=== PATIENT | female | born 1985 | race African-American/Black ===

== ENCOUNTER 2019-05-06 17:07 | Emergency (ER) | payer BC, SELFPAY ==
--- NOTE | 2019-05-06 17:13 | ED.GENADULT ---
HPI - General Adult General Chief complaint: Upper Respiratory Infection Stated complaint: Cough Time Seen by Provider: 05/06/19 17:36 Source: patient Mode of arrival: ambulatory Limitations: no limitations History of Present Illness HPI narrative: 33-year-old female patient presents to the [facility] with complaints of cold symptoms for the past week. Patient states that she has had a little bit of a stuffy nose runny nose recently just yesterday started having a cough with green sputum production. Denies any chest pain or shortness of breath. Patient denies any fevers. Denies any weakness. Patient states that she did get a flu shot this year. Patient states HER-2 younger children did have influenza B last week. Denies any ear pain or sore throat. Related Data Home Medications Medication Instructions Recorded Confirmed clotrimazole-betamethasone applic TOPICAL 05/06/19 Allergies Allergy/AdvReac Type Severity Reaction Status Date / Time No Known Allergies Allergy Unknown Unverified 06/27/17 12:43 Review of Systems Review of Systems: Narrative: CONSTITUTIONAL: Denies fever, chills, or sweats. EYES: Denies visual changes, redness, or discharge. ENT: Positive rhinorrhea, congestion, denies sore throat, or otalgia. CARDIOVASCULAR: Denies chest pain, palpitations, or edema. RESPIRATORY: Positive productive cough, denies dyspnea. GASTROINTESTINAL: Denies abdominal pain, nausea, vomiting, or diarrhea. GENITOURINARY: Denies dysuria or hematuria. SKIN: Denies rash or itching. MUSCULOSKELETAL: Denies back pain, joint pain, or myalgia. NEUROLOGIC: Denies headache, numbness, or weakness. PSYCHIATRIC: Denies anxiety or depression. PMFSH Comments At the time of my signature I agree with nursing past medical history, surgical, social, and family history. There is no relevant family history pertinent to the presenting complaint. Exam Narrative: Exam Narrative: GENERAL: Well-appearing, well-nourished, and in no acute distress. HEAD: Normocephalic, atraumatic. No tenderness noted to frontal maxillary sinuses on palpation. EYES: PERRLA and EOMI. ENT: Nares with erythema and edema noted bilaterally with the left nare swollen shut, no rhinorrhea or epistaxis. Mucous membranes moist. Posterior pharynx with no erythema, tonsillar margin, exudates or lesions present. Bilateral TMs do have a little bit of fluid behind them. NECK: Supple. No lymphadenopathy CHEST: Clear to auscultation. No respiratory distress. HEART: Regular rate and rhythm. No murmur heard. Normal peripheral pulses. ABDOMEN: Soft, nontender, nondistended, normal active bowel sounds. EXTREMITIES: Normal range of motion. No edema. SKIN: Warm, dry, no rash. NEURO: No focal deficits. Alert and oriented x3. Course Vital Signs Vital signs: Vital Signs Temperature 37.1 C 05/06/19 17:20 Pulse Rate 84 05/06/19 17:20 Respiratory Rate 16 05/06/19 17:20 Blood Pressure 119/68 05/06/19 17:20 Pulse Oximetry 99 05/06/19 17:20 Temperature 37.1 C 05/06/19 17:20 Pulse Rate 84 05/06/19 17:20 Respiratory Rate 16 05/06/19 17:20 Blood Pressure 119/68 05/06/19 17:20 Pulse Oximetry 99 05/06/19 17:20 Vital signs reviewed. Medical Decision Making Differential Diagnosis Differential Diagnosis: Differential diagnosis: Allergic rhinitis, chronic sinusitis, tonsillitis, acute sinusitis, infectious mononucleosis, seasonal influenza, pertussis, diphtheria, meningococcal disease, viral syndrome, viral bronchitis, RSV. Discussed with patient that the risk of her having pneumonia is extremely low at this time due the fact that she is not having any fevers not having any shortness of breath or chest pain. Discussed with her that the fact that her cough just started yesterday with some green sputum this is most likely due to the drainage due to the swelling noted to the nasal canal and the fluid noted behind bilateral TMs. Discussed with patient we will go
[2019-05-06 17:20] VITALS: BP 119/68; PULSE 84; RESP 16; TEMP 37.1; O2SAT 99
== END 2019-05-06 17:44 | disposition home or self-care (01) ==
PROVIDERS: Emergency Provider Nurse Practitioner Family; PCP Family Medicine
DX: J06.9 Acute upper respiratory infection, unspecified (principal); Z98.84 Bariatric surgery status
CPT/HCPCS: 99213; G0463

== ENCOUNTER 2022-06-10 19:18 | Emergency (ER) | payer OTHER, SELFPAY ==
--- NOTE | ~2022-06-10 | XR_ITS ---
Clinical Indication: Shortness of breath, chest pain PA and lateral views of the chest: Comparison: None Findings: The lungs are clear, without evidence of focal consolidation or pleural effusion. Cardiome diastinal silhouette is within normal limits. Bones and soft tissues are unremarkable. Impression: Normal chest. Reviewed, dictated and finalized at location . Impression: Normal chest.
[2022-06-10 19:20] VITALS: BP 132/61; PULSE 81; RESP 16; TEMP 36.6; O2SAT 100
--- NOTE | 2022-06-10 21:14 | ECG_ITS ---
Measurements Intervals Pender Rate: 64 P: 49 [place]: 178 QRS: 12 QRSD: 109 T: 16 QT: 376 QTc: 390 Interpretive Statements SINUS RHYTHM DELAYED PRECORDIAL R/S TRANSITION BORDERLINE ECG NO PREVIOUS ECG AVAILABLE FOR COMPARISON Electronically Signed On 06-11-2022 6:34:15 CDT by Saeid Vail D.O.
--- NOTE | 2022-06-10 21:37 | ED.SOB ---
HPI - SOB/Dyspnea General Chief Complaint: Shortness of Breath/Dyspnea Stated Complaint: sob Time Seen by Provider: 06/10/22 21:10 History of Present Illness HPI Narrative: Patient is a 37-year-old healthy female here due to concerns over palpitations, elevated heart rate and shortness of breath yesterday. 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 Her Apple Watch alerted her that her heart rate was 130 at that time. Patient went home and rested and started to feel somewhat better but today she woke up with an aching sensation in her left chest, left neck and left arm. Her heart rate has been normal today. States that she has had episodes of anxiety for similar presentation in the past. No leg swelling, fevers or chills, cough or congestion. Related Data Home Medications Medication Instructions Recorded Confirmed clotrimazole-betamethasone 1 applic topical 05/06/19 %-0.05 % topical cream Allergies Allergy/AdvReac Type Severity Reaction Status Date / Time No Known Allergies Allergy Unknown Verified 06/10/22 19:18 Review of Systems Review of Systems: Gen.: Denies fevers or chills Eyes: Denies eye pain or visual change ENT: Denies congestion Respiratory: Reports shortness of breath CV: Reports chest pain and palpitations GI: Reports abdominal pain nausea, emesis or diarrhea denies burning, urgency, frequency or hematuria Musculoskeletal: Denies back pain or muscle pain Neuro: Denies numbness, tingling, weakness or focal weakness Skin: Denies rash 10 point review of systems negative, other than as per history of present illness, past medical history and other positives and review of systems Exam Narrative: APPEARANCE: Well appearing, no pain in distress, well-nourished. Head: Normocephalic and atraumatic. EYES: PERRLA/EOMI, conjunctivae clear NOSE: No nasal drainage EARS: External ear normal in appearance THROAT: Oropharynx is clear. Mucous membranes are moist. NECK: Supple. No adenopathy, no masses. RESPIRATORY: Airway patent, respirations nonlabored. Clear to auscultation bilaterally, no rales, rhonchi, wheezing. CARDIOVASCULAR: Regular rate and rhythm without murmurs, rubs, or gallops. ABDOMINAL: Normoactive bowel sounds. Soft, nontender, nondistended. No rebound tenderness or guarding. MUSCULOSKELETAL: Extremities are warm and well-perfused. Moves all extremities well. No edema. NEURO: Normal speech. No focal neurologic deficits. SKIN: Skin is warm and dry. No rashes. PSYCHIATRIC: Normal affect/mood.. Course Vital Signs Vital signs: Vital Signs Temperature 97.8 F 06/10/22 19:20 Pulse Rate 81 06/10/22 19:20 Respiratory Rate 16 06/10/22 19:20 Blood Pressure 132/61 06/10/22 19:20 Pulse Oximetry 100 06/10/22 19:20 Oxygen Delivery Room Air 06/10/22 19:20 Temperature 97.8 F 06/10/22 19:20 Pulse Rate 67 06/10/22 23:07 Respiratory Rate 14 06/10/22 23:07 Blood Pressure 132/61 06/10/22 19:20 Pulse Oximetry 97 06/10/22 23:07 Oxygen Delivery Room Air 06/10/22 19:20 MDM - SOB/Dyspnea MDM Narrative Medical decision making narrative: 37-year-old female here for evaluation of an episode of shortness of breath and tachycardia yesterday which resolved but is now having some lingering left-sided chest pain. Patient is nontoxic in appearance and has normal vital signs. She was maintained on telemetry without any events. Basic labs unremarkable. D-dimer is negative. EKG and troponin are nonischemic. TSH is normal. Unclear etiology of patient's symptoms, will be discharged home to follow-up with cardiology she may benefit from a Holter monitor if her symptoms continue. Chest pain resolved with Tylenol. Heart score is 1. No indication for inpatient admission at this time. Return precautions were discussed and she voiced understanding. Lab D
[2022-06-10] MEDS: ACETAMINOPHEN 325 MG TABLET 650 MG PO (22:09)
[2022-06-10 22:22] LABS: Basophils Percent Auto 0.4 % (0.2-1.2); Eosinophils Absolute Auto 0.1 K/mm3 (0-0.3); Eosinophils Percent Auto 1.7 % (0-4.4); Hematocrit 40.8 % (37.0-47.0); Hemoglobin 13.2 g/dL (12.0-15.0); Lymphocytes Absolute Auto 2.04 K/mm3 (0.9-3.2); Lymphocytes Percent Auto 43.2 % (18.3-44.2); Mean Corpuscular HGB Conc 32.4 g/dl (32-36); Mean Corpuscular Hemoglobin 30.2 pg (26-34); Mean Corpuscular Volume 93.4 fl (80-100); Mean Platelet Volume 11.1 fl (7.4-10.4); Monocytes Absolute Auto 0.4 K/mm3 (0.1-0.6); Monocytes Percent Auto 8.3 % (2.6-8.5); Neutrophils Absolute Auto 2.2 K/mm3 (1.3-6.7); Neutrophils Percent Auto 46.4 % (45.5-73.1); Platelet Count Result 188 k/mm3 (150-375); Red Blood Count 4.37 M/mm3 (4.2-5.4); Red Cell Distribution Width 12.4 % (11.5-14.5); White Blood Count 4.7 K/mm3 (4.5-10.0)
--- NOTE | 2022-06-10 22:22 | PC.NURSE ---
Lab called to obtain blood on patient.
[2022-06-10 22:36] LABS: Alanine Aminotransferase 16 U/L (6-35); Albumin Level 4.3 g/dL (3.5-5.1); Alkaline Phosphatase 66 U/L (38-126); Anion Gap 3 mmol/L (8-16); Aspartate Amino Transferase 23 U/L (14-36); Bilirubin,Total 0.6 mg/dL (0.2-1.3); Blood Urea Nitrogen 12 mg/dL (7-17); Calcium 8.8 mg/dL (8.4-10.2); Carbon Dioxide 29 mmol/L (22-30); Chloride 104 mmol/L (98-107); Estimated CRCL calculation 108 ml/min; Estimated Glomerular Filt Rate > 60; Glucose 84 mg/dL (65-110); Potassium 4.2 mmol/L (3.4-5.0); Sodium 136 mmol/L (137-145)
[2022-06-10 22:47] LABS: Troponin I < 0.012 ng/mL (0.000-0.034)
[2022-06-10 22:59] LABS: Partial Thromboplastin Time 26.2 SECONDS (22.3-36.8)
[2022-06-10 23:07] VITALS: PULSE 67; RESP 14; O2SAT 97
--- NOTE | 2022-06-10 23:07 | PC.NURSE ---
Report received from DIOGENES Whitten. Assumed care of patient at this time.
[2022-06-10 23:10] LABS: Lipase 307 U/L (23-300); Magnesium 1.9 mg/dL (1.6-2.3)
[2022-06-10 23:42] LABS: D Dimer 0.47 ug/mL (<0.48)
[2022-06-11 00:39] LABS: Thyroid Stimulating Hormone Reflex 0.941 uIU/mL (0.465-4.68)
== END 2022-06-11 01:02 | disposition home or self-care (01) ==
PROVIDERS: Emergency Provider Physician Assistant; PCP Family Medicine
DX: R06.9 Unspecified abnormalities of breathing (principal); R07.9 Chest pain, unspecified
CPT/HCPCS: 36415; 71046; 80053; 83690; 83735; 84443; 84484; 85025; 85380; 85610; 85730; 93005; 99283; A9270

== ENCOUNTER 2022-07-15 13:08 | Emergency (ER) | payer OTHER, SELFPAY ==
--- NOTE | ~2022-07-15 | XR_ITS ---
EXAMINATION: XR hand RT min 3V INDICATION: Right hand pain TECHNIQUE: Three views of the right hand are obtained. COMPARISON: None available FINDINGS: No fracture, dislocation, or subluxation. The bones, soft tissues, and joint spaces are nor mal. IMPRESSION: 1. No acute osseous abnormality. Reviewed, dictated and finalized at location A.
--- NOTE | ~2022-07-15 | XR_ITS ---
EXAMINATION: XR forearm RT 2V INDICATION: Right forearm pain and swelling TECHNIQUE: Two views of the right forearm are obtained. COMPARISON: None available FINDINGS: There is a nondisplaced fracture of the radial head. An elbow joint effusion is present. Al ignment at the wrist and elbow is normal. IMPRESSION: 1. Nondisplaced radial head fracture with elbow joint effusion. Reviewed, dictated and finalized at location A.
--- NOTE | 2022-07-15 13:19 | ED.GENADULT ---
HPI - General Adult General Chief complaint: Extremity Injury, Upper Stated complaint: rt arm injury Time Seen by Provider: 07/15/22 13:19 Source: patient Mode of arrival: ambulatory Limitations: no limitations History of Present Illness HPI narrative: 37-year-old female patient presents to [facility] with complaints of right arm pain. Patient states she slipped on a piece paper yesterday and fell landing on her right elbow. Patient states that she tried taking some Aleve yesterday for the pain but felt like it did really help much. Denies taking anything today for pain. Denies any numbness or tingling to the hand. Patient states it does hurt when she tries to extend her elbow. Related Data Allergies Allergy/AdvReac Type Severity Reaction Status Date / Time No Known Allergies Allergy Unknown Verified 07/15/22 13:28 Review of Systems Review of Systems: CONSTITUTIONAL: Denies fever, chills, or sweats. EYES: Denies visual changes, redness, or discharge. ENT: Denies rhinorrhea, congestion, sore throat, or otalgia. CARDIOVASCULAR: Denies chest pain, palpitations, or edema. RESPIRATORY: Denies cough or dyspnea. GASTROINTESTINAL: Denies abdominal pain, nausea, vomiting, or diarrhea. GENITOURINARY: Denies dysuria or hematuria. SKIN: Denies rash or itching. MUSCULOSKELETAL: Denies back pain, joint pain, or myalgia. Positive right elbow and forearm pain status post fall NEUROLOGIC: Denies headache, numbness, or weakness. PSYCHIATRIC: Denies anxiety or depression. [facility] Family History Family History (Updated 07/15/22 @ 13:22 by YOON Salazar) Other Asthma Hypertension Sickle cell anemia Comments At the time of my signature I agree with nursing past medical history, surgical, social, and family history. There is no relevant family history pertinent to the presenting complaint. Exam Narrative: GENERAL: Well-appearing, well-nourished, and in no acute distress. HEAD: Normocephalic, atraumatic. EYES: PERRLA and EOMI. ENT: Nares clear, no rhinorrhea or epistaxis. Mucous membranes moist. NECK: Supple. No lymphadenopathy CHEST: Clear to auscultation. No respiratory distress. HEART: Regular rate and rhythm. No murmur heard. Normal peripheral pulses. ABDOMEN: Soft, nontender, nondistended, normal active bowel sounds. EXTREMITIES: The R elbow is without obvious asymmetry or deformity when compared to the L elbow. No obvious surface trauma, ecchymosis or soft tissue swelling. bony tenderness to palpation of the lateral and medial epicondyle, olecranon, or radial head. No epicondylar or axillary lymphadenopathy. pain with flexion, unable to fully extend right elbow , pain with supination andpronation. decreased muscle strength and web developer compared to the left. Intact motor and sensation of ulnar, median, and radial nerves. SKIN: Warm, dry, no rash. NEURO: No focal deficits. Alert and oriented x3. Course Course Level of Care: Express Care Visit Vital Signs Vital signs: Vital Signs Temperature 36.4 C 07/15/22 13:25 Pulse Rate 79 07/15/22 13:25 Respiratory Rate 18 07/15/22 13:25 Blood Pressure 124/61 07/15/22 13:25 Pulse Oximetry 100 07/15/22 13:25 Temperature 36.4 C 07/15/22 13:25 Pulse Rate 79 07/15/22 13:25 Respiratory Rate 18 07/15/22 13:25 Blood Pressure 124/61 07/15/22 13:25 Pulse Oximetry 100 07/15/22 13:25 Vital signs reviewed Procedures Orthopedic Splinting/Casting Injury #1: Splinting/Casting Date: 07/15/22 Splinting/Casting Time: 14:16 Side: right Upper Extremity Injury Location: elbow and forearm Upper Extremity Immobilizer: posterior splint Splint: customized in ED OCL: posterior Pre-Procedure Neuro Vascular Exam: normal Post-Procedure Neuro Vascular Exam: normal Other Orthopedic Equipment: other (sling) Medical Decision Making MDM Narrative Medical decision making narrative: plan care for p
[2022-07-15 13:25] VITALS: BP 124/61; PULSE 79; RESP 18; TEMP 36.4; O2SAT 100
== END 2022-07-15 14:22 | disposition home or self-care (01) ==
PROVIDERS: Emergency Provider Nurse Practitioner Family; PCP Family Medicine
DX: S52.124A Nondisplaced fracture of head of right radius, initial encounter for closed fracture (principal); W01.0XXA Fall on same level from slipping, tripping and stumbling without subsequent striking against object, initial encounter; Z98.84 Bariatric surgery status
CPT/HCPCS: 29105; 73090; 73130; 99214; A4565; G0463

== ENCOUNTER 2024-05-22 20:47 | Emergency (ER) | payer OTHER, SELFPAY ==
--- NOTE | ~2024-05-22 | XR_ITS ---
EXAMINATION: XR chest 1V DATE: 05/22/2024 23:58 INDICATION: Chest pain. TECHNIQUE: A single frontal view of the chest was obtained. COMPARISON: Chest 2 view 06/10/2022 FINDINGS: There is no pneumonia, pleural effusion, or pneumothorax. The heart size is normal. IMPRESSION: 1. No acute cardiopulmonary disease. Reviewed, dictated and finalized at location A. 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
--- OUTSIDE RECORDS SUMMARY | 2024-05-22 20:49 | XMS_ITS | Encounter Summary ---
Author Organization [facility] Address [address] [place] [address] Care Team Providers Care Hematology Specialist Name Role Phone Popeye Bravo MD Primary Care Provider [phone] Encounter Details Date Type Department Care Team (Late st Contact Info) Description 11/10/2018 Abstract [facility] [address] [address] Michael Palomares MD [address] [place] [address] Social History Tobacco Use Types Packs/Day Years Used Date Smoking Tobacco: Former Cigarettes Smokeless Tobacco: Never Alcohol Use Standard Drinks/Week Comments Yes 0 (1 standard drink = 0.6 oz pur e alcohol) social use Comments Unknown Sex and Gender Information Value Date Recorded Sex Assigned at Not on file Legal Sex Female 6:07 AM [employer] Gender Identity Not on file Sexual Orientation Not on file documented as of this encounter Plan of Treatment Not on file documented as of this encounter Visit Diagnoses Not on filedocumented in this encounter Care Teams Hematology Specialist Relationship Specialty Start Date End Date Popeye Bravo MD [address] [place] [id number] PCP - General Family Practice 11/07/18 documented as of this encounter
--- OUTSIDE RECORDS SUMMARY | 2024-05-22 20:49 | XMS_ITS | Data Portability ---
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 Plan of Treatment Reminders Order Date Submit Date Provider Last Modified By Organization Details Last Modified Time Details Appointments None recorded. Lab unlisted lab - STD screening ([facility]) 2023 024 miLibris Brown, [address] [place], [address], 4 12:04:14 bacterial vaginosis + vaginitis panel, vaginal 2023 024 miLibris Brown, [address] [place], [address], 4 14:08:42 bacterial vaginosis + vaginitis panel, vaginal 2022 023 miLibris Brown, [address] [place], [address], 3 15:57:33 unlisted lab - STD screening ([facility]) 2022 023 miLibris Brown, [address] [place], [address], 3 11:42:38 unlisted lab - STD screening ([facility]) 2022 023 miLibris Brown, [address] [place], [address], 3 08:52:08 STI panel 2022 023 YOLIS Salas Brown, [address] [place], [address], 3 15:56:50 unlisted lab - STD screening ([facility]) 2022 023 YOLIS Salas Brown, [address] [place], [address], 3 14:24:56 STI panel 2022 023 YOLIS Salas Brown, [address] [place], [address], 3 10:02:36 CBC w/ auto diff 2022 023 YOLIS Waters[place] Brown, [address] [place], [address], 3 16:40:16 CMP, serum or plasma 2022 023 YOLIS Watersland Brown, [address] [place], [address], 3 14:19:03 TSH, serum or plasma 2022 023 YOLIS [employer] Brown, [address] [place], [address], 3 15:10:52 vitamin D, 25-hydroxy, total, serum 2022 023 [employer] [facility], [address] [place], [address], 3 04:09:19 vitamin B12, serum 2022 023 [facility], [address] [place], [address], 3 04:09:18 HIV 1+2 Ab + HIV1 p24 Ag, quantitativ e immunoassay , serum 06/29/ 2022 06/29/2 022 [facility], [address] [place], [address], 10:12:53 hepatitis C virus Ab, serum 2021 [facility], [address] [place], [address], 10:12:52 HBsAg (hepatitis B surface Ag), serum 2021 [facility], [address] [place], [address], 10:12:50 RPR (rapid plasma reagin), serum 2021 [facility], [address] [place], [address], 13:04:19 RPR (rapid plasma reagin), serum 2021 [facility], [address] [place], [address], 10:12:54 STI panel 2021 [facility], [address] [place] [address], [address], 15:02:56 Referral None recorded. Procedures None recorded. Surgeries None recorded. Imaging None recorded. Medication Orders triamcinolo ne acetonide 0.1 % topical ointment 2022 023 [id number], [address], [id number], 10:22:15 Patient TargetsNo targets recorded. Patient Instructions Encounter Date Encounter Id Patient Instructions Last Modified By Organization Details Last Modified Time 09/27/2021 [id number] learning about dietary guidelines [email or web address] Not available 09/27/2021 12:46:14 eating healthy foods: care instructions [email or web address] Not available 09/27/2021 12:46:14 weight management education [email or web address] Not available 09/27/2021 12:46:13 learning about control kalpesh Not available 09/27/2021 12:46:13 03/14/2023 [id number] A healthy lifestyle: care instructions [email or web address] Not available 03/14/2023 10:22:00 substance use disorder: care instructions [email or web address] Not available 03/14/2023 10:22:00 tobacco cessation [email or web address] Not available 03/14/2023 10:22:00 Following the [employer] Food Guide: Care Instructions [email or web address] Not available 03/14/2023 10:22:00 exercise program: getting started [email or web address] Not available 03/14/2023 10:22:00 Reason for Referral None Reported. Results Created Date Observation Date Name Description Value Unit Range Abnormal Flag Note LastModifiedBy Organization Detail LastModifiedTime 05/11/1905/11/2022 VITAM IN B12 vitamin B12 617 pg/mL 200-11 00 normal Not Available [facility] [address] [place], [address], 05/11/2022 04:09:18 05/11/1905/11/2022 VITAM IN D,25- OH,TO MIGUEL,I A vitamin D,25-oh,tota l,ia 15 NG/mL 30-100 low Vitam in D Statu s 25-OH Vitam in D: Defic iency : <20 ng/mL Insuf ficie ncy: 20 - 29 ng/mL Optim al: > or = 30 ng/mL For 25-OH Vitam in D testi ng on patie nts on D2-duarte pplem entat ion and patie nts for whom quant itati on of D2 and D3 fract ions is requi red, the Quest Assur eD(TM ) 25-OH VIT D, (D2,D 3), LC/MS /MS is recom joseluis d: order code 20014 (socorro ents >2yrs ). See Note 1 NO COLLE CTION DATE RECEI CHARO. WE HAVE USED THE DATE THE SPECI MEN WAS RECEI CHARO BY THIS LABOR ATORY THE COLLE CTION DATE. IF THIS IS INCOR RECT, PLEAS E CONTA CT CLIEN T SERVI RAYMUNDO. PHONE BARBI R: [phone] Note 1 For addit ional infor miroslava bedolla e refer to http: //[facility] ewelina muñoz.Que stDia gnost ics.c om/fa q/FAQ 199 (This link is being provi ded for infor yahir ferraro/ educa cheng l purpo ses only. ) Not Available [facility] [address] [place], [address], 05/11/2022 04:09:19 09/28/19 22 09/28/2021 STI PANEL trichomonas vaginalis TRICH neg negati ve normal Not Available [address], [address], 09/28/2021 15:02:55 09/28/19 22 09/28/2021 STI PANEL chlamydia trachomatis CT neg negati ve normal This repor t is inten ded for us in clini alycia monit oring and manag ement of patie nts. It is not inten ded for use in medic al-le gal appli catio n. Not Available [address], [address], 09/28/2021 15:02:55 09/28/19 22 09/28/2021 STI PANEL neisseria gonorrhoeae GC neg negati ve normal This repor t is inten ded for us in clini alycia monit oring and manag ement of patie nts. It is not inten ded for use in medic al-le gal appli catio n. Not Available [facility] [address] [place], [address], 09/28/2021 15:02:55 09/28/19 22 10/05/2021 HEPAT ITIS B SURFA CE ANTIG EN W/REF L CONFI RM hepatitis B surface antigen NON-RE ACTIVE non-re active normal Not Available [facility] [address] [place], [address], 10/05/2021 10:12:50 09/28/19 22 10/05/2021 HEPAT ITIS C AB W/REF L TO HCV RNA, QN, PCR hepatitis C antibody NON-RE ACTIVE non-re active normal Not Available [facility] [address] [place], [address], 10/05/2021 10:12:52 09/28/19 22 10/05/2021 HEPAT ITIS C AB W/REF L TO HCV RNA, QN, PCR index 0.01 <1.00 normal HCV antib dago was non-r eacti ve. There is no labor atory evide nce of HCV infec tion. In most cases , no furth er actio n is requi red. Howev er, if recen t HCV expos ure is suspe cted, a test for HCV RNA (test code 83626 ) is sugge sted. For addit ional infor yahir muñoz pleas e refer to http: //[facility] ewelina muñoz.que stdia gnost ics.c om/fa q/FAQ 22v1 (This link is being provi ded for infor yahir nal/ educa cheng l purpo ses only. ) Not Available [facility] [address] [address] , [place], [address], 10/05/2021 10:12:52 09/28/19 22 10/05/2021 HIV 1/2 ANTIG EN/AN TIBOD Y,FOU RTH GENER ATION W/RFL HIV Ag/Ab, 4TH gen NON-RE ACTIVE non-re active normal HIV-1 antig en and HIV-1 /HIV- 2 antib odies were not detec stephani. There is no labor atory evide nce of HIV infec tion. PLEAS E NOTE: This infor kourtneynoah muñoz has been discl osed to you from recor ds whose confi denti ality may be prote cted by state law. If your state requi res such prote ction , then the state law prohi bits you from toño stafford any furth er discl osure of the infor kourtneynoah n witho ut the speci fic writt en conse nt of the perso n to whom it perta ins, or as other durant permi tted by law. A gener al autho rilaura ion for the relea se of medic al or other infor matio n is NOT suffi cient for this purpo se. For addit ional infor matio n pleas e refer to http: //[facility] cat n.que stdia gnost ics.c om/fa q/FAQ 106 (This link is being provi ded for infor matio nal/ educa cheng l purpo ses only. ) The perfo rmanc e of this assay has not been clini ernestina valid ated in patie nts less than 2 years old. Not Available [facility] [address] [place], [address], 10/05/2021 10:12:53 09/28/19 22 10/05/2021 RPR (DX) W/REF L TITER AND CONFI RMATO RY TESTI NG RPR (DX) w/refl titer and confirmatory testing REACTI VE non-re active abnormal Not Available [facility] [address] [place], [address], 10/05/2021 10:12:54 09/28/19 22 10/05/2021 RPR TITER RPR titer 1:1 high Not Available [facility] [address], [address], 10/05/2021 10:12:55 09/28/19 22 10/05/2021 FTA-A BS fta-abs NON-RE ACTIVE non-re active normal The FTA-A BS is a trepo nemal assay that is inten ded to be used with other tests (e.g. RPR) as part of a diagn ostic algor ithm in the diagn osis of syphi lis. Not Available [facility] [place] [address] [address] [place], [address], 10/05/2021 10:12:55 05/09/19 23 05/10/2022 COMPR EHENS HENRRY METAB OLIC PANEL sodium 141 mmol/ L 136 - 145 normal Not Available [address], [address], 05/10/2022 14:19:03 05/09/19 23 05/10/2022 COMPR EHENS HENRRY METAB OLIC PANEL potassium 4.6 mmol/ L 3.5 - 5.1 normal Not Available [address], [address], 05/10/2022 14:19:03 05/09/19 23 05/10/2022 COMPR EHENS HENRRY METAB OLIC PANEL chloride 104 mmol/ L 98 - 107 normal Not Available [address], [address], 05/10/2022 14:19:03 05/09/19 23 05/10/2022 COMPR EHENS HENRRY METAB OLIC PANEL glucose 75 mg/dL 74 - 106 normal Not Available [address], [address], 05/10/2022 14:19:03 05/09/19 23 05/10/2022 COMPR EHENS HENRRY METAB OLIC PANEL carbon dioxide 32 mmol/ L 20 - 32 normal Not Available [address], [address], 05/10/2022 14:19:03 05/09/19 23 05/10/2022 COMPR EHENS HENRRY METAB OLIC PANEL calcium 9.4 mg/dL 8.5 - 10.1 normal Not Available [address], [address], 05/10/2022 14:19:03 05/09/19 23 05/10/2022 COMPR EHENS HENRRY METAB OLIC PANEL creatinine 0.79 mg/dL 0.60 - 1.00 normal Not Available [address], [address], 05/10/2022 14:19:03 05/09/19 23 05/10/2022 COMPR EHENS HENRRY METAB OLIC PANEL eGFR 101 mL/mi n/1.7 3m2 >60 normal The eGFR is based on the CKD-E PI 2020 onesimo nova. To calcu late the new eGFR from a previ ous Creat inine or Cysta nikita C resul t, go to https ://[employer].pop rg/pr rachelle novaal s/kdo qi/gf r_cal culat or Not Available [address], [address], 05/10/2022 14:19:03 05/09/19 23 05/10/2022 COMPR EHENS HENRRY METAB OLIC PANEL AST 21 U/L 32 - 40 low Not Available [address], [address], 05/10/2022 14:19:03 05/09/19 23 05/10/2022 COMPR EHENS HENRRY METAB OLIC PANEL ALT 20 U/L 14 - 59 normal Not Available [address], [address], 05/10/2022 14:19:03 05/09/19 23 05/10/2022 COMPR EHENS HENRRY METAB OLIC PANEL alk phos 65 U/L 46 - 116 normal Not Available [address], [address], 05/10/2022 14:19:03 05/09/19 23 05/10/2022 COMPR EHENS HENRRY METAB OLIC PANEL albumin 3.5 g/dL 3.4 - 5.0 normal Not Available [address], [address], 05/10/2022 14:19:03 05/09/19 23 05/10/2022 COMPR EHENS HENRRY METAB OLIC PANEL protein, total 7.3 g/dL 6.4 - 8.2 normal Not Available [address], [address], 05/10/2022 14:19:03 05/09/19 23 05/10/2022 COMPR EHENS HENRRY METAB OLIC PANEL bilirubin, total 0.4 mg/dL 0.2 - 1.0 normal Not Available [address], [address], 05/10/2022 14:19:03 05/09/19 23 05/10/2022 COMPR EHENS HENRRY METAB OLIC PANEL urea nitrogen (BUN) 11 mg/dL 6 - 31 normal Not Available [address], [address], 05/10/2022 14:19:03 05/09/19 23 05/10/2022 STD SCREE KEN ([facility] ) hep B sag Non-Re active non-re active normal Not Available [address], [address], 05/10/2022 14:24:56 05/09/19 23 05/10/2022 STD SCREE KEN ([facility] ) hep C Ab Non-Re active non-re active normal Not Available [address], [address], 05/10/2022 14:24:56 05/09/19 23 05/10/2022 STD SCREE KEN ([facility] ) HIV 1/2 Ag/Ab Non-Re active non-re active normal Not Available [address], [address], 05/10/2022 14:24:56 05/09/19 23 05/10/2022 STD SCREE KEN ([facility] ) syphilis Ab Non-Re active non-re active normal Not Available [address], [address], 05/10/2022 14:24:56 05/09/1905/10/2022 TSH TSH 1.40 mIU/L 0.55 - 4.78 normal Refer ence Range Femal e aged 18-Ad ult: 0.55- 4.78 Pregn alejandro Refer ence Range s First Trime ster 0.26- 2.66 Secon d Trime ster 0.55- 2.73 Third Trime ster 0.43- 2.91 Not Available [address], [address], 05/10/2022 15:10:52 05/09/19 23 05/10/2022 CBC (INCL UDES DIFF/ PLT) WBC 4.6 thous and/u L 4.0 - 9.8 normal Not Available [address], [address], 05/10/2022 16:40:16 05/09/19 23 05/10/2022 CBC (INCL UDES DIFF/ PLT) RBC 4.2 robyn on/uL 3.9 - 4.9 normal Not Available [address], [address], 05/10/2022 16:40:16 05/09/19 23 05/10/2022 CBC (INCL UDES DIFF/ PLT) hemoglobin 12.3 g/dL 11.8 - 14.8 normal Not Available [address], [address], 05/10/2022 16:40:16 05/09/19 23 05/10/2022 CBC (INCL UDES DIFF/ PLT) hematocrit 38.4 % 35.5 - 44.0 normal Not Available [address], [address], 05/10/2022 16:40:16 05/09/19 23 05/10/2022 CBC (INCL UDES DIFF/ PLT) MCV 92.3 fL 82.0 - 99.0 normal Not Available [address], [address], 05/10/2022 16:40:16 05/09/19 23 05/10/2022 CBC (INCL UDES DIFF/ PLT) MCH 29.6 pg 27.2 - 32.6 normal Not Available [address], [address], 05/10/2022 16:40:16 05/09/19 23 05/10/2022 CBC (INCL UDES DIFF/ PLT) MCHC 32.0 g/dL 31.5 - 35.5 normal Not Available [address], [address], 05/10/2022 16:40:16 05/09/19 23 05/10/2022 CBC (INCL UDES DIFF/ PLT) RDW-CV 12.7 % 11.5 - 14.5 normal Not Available [address], [address], 05/10/2022 16:40:16 05/09/19 23 05/10/2022 CBC (INCL UDES DIFF/ PLT) platelet 165 thous and/u L 140 - 350 normal Not Available [address], [address], 05/10/2022 16:40:16 05/09/19 23 05/10/2022 CBC (INCL UDES DIFF/ PLT) MPV 12.5 fL 9.3 - 12.4 high Not Available [address], [address], 05/10/2022 16:40:16 05/09/19 23 05/10/2022 CBC (INCL UDES DIFF/ PLT) absolute neutrophil 1.98 thous and/u L 1.90 - 7.00 normal Not Available [address], [address], 05/10/2022 16:40:16 05/09/19 23 05/10/2022 CBC (INCL UDES DIFF/ PLT) absolute lymphocyte 2.11 thous and/u L 0.70 - 4.50 normal Not Available [address], [address], 05/10/2022 16:40:16 05/09/19 23 05/10/2022 CBC (INCL UDES DIFF/ PLT) absolute monocyte 0.38 thous and/u L 0.10 - 1.30 normal Not Available [address], [address], 05/10/2022 16:40:16 05/09/19 23 05/10/2022 CBC (INCL UDES DIFF/ PLT) absolute eosinophil 0.10 thous and/u L <0.70 normal Not Available [address], [address], 05/10/2022 16:40:16 05/09/19 23 05/10/2022 CBC (INCL UDES DIFF/ PLT) absolute basophil 0.02 thous and/u L <0.20 normal Not Available [address], [address], 05/10/2022 16:40:16 05/09/19 23 05/10/2022 CBC (INCL UDES DIFF/ PLT) absolute immature granulocyte 0.00 thous and/u L <0.03 normal Not Available [address], [address], 05/10/2022 16:40:16 05/09/19 23 05/11/2022 STI PANEL trichomonas vaginalis TRICH neg negati ve normal Not Available [address], [address], 05/12/2022 10:02:36 05/09/19 23 05/11/2022 STI PANEL chlamydia trachomatis CT neg negati ve normal This repor t is inten ded for us in clini alycia monit oring and manag ement of patie nts. It is not inten ded for use in medic al-le gal appli catio n. Not Available [address], [address], 05/12/2022 10:02:36 05/09/19 23 05/11/2022 STI PANEL neisseria gonorrhoeae GC neg negati ve normal This repor t is inten ded for us in clini alycia monit oring and manag ement of patie nts. It is not inten ded for use in medic al-le gal appli catio n. Not Available [address], [place], [address], 05/12/2022 10:02:36 08/18/19 23 08/18/2022 STD SCREE KEN ([facility] ) hep BS Ag Non-Re active non-re active normal Not Available [address], [address], 08/20/2022 08:52:08 08/18/19 23 08/18/2022 STD SCREE KEN ([facility] ) hep C Ab Non-Re active non-re active normal Not Available [address], [address], 08/20/2022 08:52:08 08/18/19 23 08/18/2022 STD SCREE KEN ([facility] ) HIV 1/2 Ag/Ab Non-Re active non-re active normal Not Available [address], [place], [address], 08/20/2022 08:52:08 08/18/19 23 08/18/2022 STD SCREE KEN ([facility] ) syphilis Ab Non-Re active non-re active normal Not Available [address], [address], 08/20/2022 08:52:08 08/18/19 23 08/21/2022 STI PANEL trichomonas vaginalis TRICH neg negati ve normal Not Available [address], [address], 08/21/2022 15:56:50 08/18/19 23 08/21/2022 STI PANEL chlamydia trachomatis CT neg negati ve normal This repor t is inten ded for us in clini alycia monit oring and manag ement of aaron brown. It is not inten ded for use in medic al-le gal appli catio n. Not Available [address], [place], [address], 08/21/2022 15:56:50 08/18/1908/21/2022 STI PANEL neisseria gonorrhoeae GC neg negati ve normal This repor t is inten ded for us in clini alycia monit oring and manag ement of aaron brown. It is not inten ded for use in medic al-le gal appli catio n. Not Available [facility] [address] [place] [address], [address], 08/21/2022 15:56:50 03/14/2003/15/2023 STD SCREE KEN ([facility] ) hep BS Ag Non-Re active non-re active normal Not Available [facility] [address] [place] [address], [address], 03/15/2023 11:42:38 03/14/20 23 03/15/2023 STD SCREE KEN ([facility] ) hep C Ab Non-Re active non-re active normal Not Available [address], [address], 03/15/2023 11:42:38 03/14/2003/15/2023 STD SCREE KEN ([facility] ) HIV 1/2 Ag/Ab Non-Re active non-re active normal Not Available [address], [address], 03/15/2023 11:42:38 03/14/20 23 03/15/2023 STD SCREE KEN ([facility] ) syphilis Ab Non-Re active non-re active normal Not Available [facility] [address] [place] [address], [address], 03/15/2023 11:42:38 03/14/2003/15/2023 VAGIN ITIS PLUS STD PANEL bacterial vaginosis BV neg negati ve normal Not Available [facility] [address] [place] [address], [address], 03/15/2023 15:57:33 03/14/2003/15/2023 VAGIN ITIS PLUS STD PANEL theresa species C. spp neg negati ve normal Not Available [facility] [address] [place] [address], [address], 03/15/2023 15:57:33 03/14/20 23 03/15/2023 VAGIN ITIS PLUS STD PANEL theresa glabrata C. gla neg negati ve normal Not Available [address], [address], 03/15/2023 15:57:33 03/14/20 23 03/15/2023 VAGIN ITIS PLUS STD PANEL trichomonas vaginalis CV/TV TRICH neg negati ve normal Not Available [address], [address], 03/15/2023 15:57:33 03/14/20 23 03/15/2023 VAGIN ITIS PLUS STD PANEL chlamydia trachomatis CT neg negati ve normal This repor t is inten ded for us in clini alycia monit oring and manag ement of patie nts. It is not inten ded for use in medic al-le gal appli catio n. Not Available [address], [address], 03/15/2023 15:57:33 03/14/20 23 03/15/2023 VAGIN ITIS PLUS STD PANEL neisseria gonorrhoeae GC neg negati ve normal This repor t is inten ded for us in clini alycia monit oring and manag ement of patie nts. It is not inten ded for use in medic al-le gal appli catio n. Not Available [facility] [address] [place] [address], [address], 03/15/2023 15:57:33 09/12/19 24 09/13/2023 STD SCREE KEN ([facility] ) hep BS Ag Non-Re active non-re active normal Not Available [address], [address], 09/13/2023 12:04:13 09/12/19 24 09/13/2023 STD SCREE KEN ([facility] ) hep C Ab Non-Re active non-re active normal Not Available [address], [address], 09/13/2023 12:04:13 09/12/19 24 09/13/2023 STD MARVEL ROGERS ([facility] ) HIV 1/2 Ag/Ab Non-Re active non-re active normal Not Available [address], [address], 09/13/2023 12:04:13 09/12/19 24 09/13/2023 STD MARVEL ROGERS ([facility] ) syphilis Ab Non-Re active non-re active normal Not Available [address], [address], 09/13/2023 12:04:13 09/12/19 24 09/13/2023 VAGIN ITIS PLUS STD PANEL bacterial vaginosis BV neg negati ve normal Not Available [address], [address], 09/13/2023 14:08:42 09/12/19 24 09/13/2023 VAGIN ITIS PLUS STD PANEL theresa species C. spp neg negati ve normal Not Available [address], [address], 09/13/2023 14:08:42 09/12/19 24 09/13/2023 VAGIN ITIS PLUS STD PANEL theresa glabrata C. gla neg negati ve normal Not Available [address], [address], 09/13/2023 14:08:42 09/12/19 24 09/13/2023 VAGIN ITIS PLUS STD PANEL trichomonas vaginalis CV/TV TRICH neg negati ve normal Not Available [address], [address], 09/13/2023 14:08:42 09/12/19 24 09/13/2023 VAGIN ITIS PLUS STD PANEL chlamydia trachomatis CT neg negati ve normal This repor t is inten ded for us in clini alycia monit oring and manag ement of patie nts. It is not inten ded for use in medic al-le gal appli catio n. Not Available [facility] [address] [place], [address], 09/13/2023 14:08:42 09/12/19 24 09/13/2023 VAGIN ITIS PLUS STD PANEL neisseria gonorrhoeae GC neg negati ve normal This repor t is inten ded for us in clini alycia monit oring and manag ement of patie nts. It is not inten ded for use in medic al-le gal appli catio n. Not Available [facility] [address] [place], [address], 09/13/2023 14:08:42 Result Notes None recorded. Problems Name Problem SNOMED Code Status Onset Date Resolution Date Notes Provider Name and Address Organization Details Recorded Time [employer] 558930405 Active 2016 [employer]; Location : None Progress : Stable Added By: Sergey Duque Add to Current Problems : YES ProblemS tatus: Current Not Available [facility] 2 21:20:56 Acute vaginiti s [id number] Completed 201606/19/2016 Acute vaginiti s; Severity : Moderate Progress : Stable Added By: Socorro Cazares Add to Current Problems : YES ProblemS tatus: Current Bacteria l vaginosi s; Location : None Severity : Moderate Progress : Stable Added By: Lesvia Mosqueda Add to Current Problems : YES ProblemS tatus: Resolve Joleen hayward, [facility] 3 17:00:50 Pain of breast [id number] Completed 201608/24/2017 Mastodyn ia; Progress : Stable Added By: Antionette Elizabeth Add to Current Problems : NO ProblemS tatus: Resolve Not Available [facility] 2 21:20:54 Vaginola bial hernia Completed 201604/17/2017 Other specifie d noninfla mmatory disorder s of vagina; Progress : Stable Added By: Antionette Elizabeth Add to Current Problems : NO ProblemS tatus: Resolve Vaginal Discharg e; Location : None Progress : Stable Added By: Antionette Elizabeth Add to Current Problems : YES ProblemS tatus: Resolve Not Available [facility] 2 21:20:53 Syphilis test finding [id number] Completed 201605/03/2021 Encounte r for screenin g for infectio ns with a predomin antly sexual mode of transmis funmilayo; Severity : Moderate Progress : Stable Added By: Socorro Cazares Add to Current Problems : YES ProblemS tatus: Current Joleen Patten [facility], [employer] [facility] 3 17:00:32 Candidal vulvovag initis [id number] Completed 201606/19/2016 Yeast vaginiti s; Progress : Stable Added By: Lesvia Mosqueda Add to Current Problems : NO ProblemS tatus: Resolve Not Available [facility] 2 21:20:53 Theresa infectio n of genital region Completed 201606/19/2016 Candidia sis of vulva and vagina; Progress : Stable Added By: Lesvia Mosqueda Add to Current Problems : NO ProblemS tatus: Resolve Not Available [facility] 2 21:20:53 Pelvic and perineal pain [id number] Completed 201706/13/2018 Pelvic and perineal pain; Progress : Stable Added By: Hodan Ye Add to Current Problems : NO ProblemS tatus: Resolve Not Available [facility] 2 21:20:56 Obesity [id number] Completed 201603/07/2018 Obesity; Progress : Stable Added By: Maria T Frey Add to Current Problems : NO ProblemS tatus: Resolve Other obesity; Progress : Stable Added By: Maria T Frey Add to Current Problems : NO ProblemS tatus: Resolve Obesity; Location : None Progress : Stable Added By: Maria T Frey Add to Current Problems : YES ProblemS tatus: Current Not Available [facility] 2 21:20:54 Acquired acanthos is nigrican s [id number] Completed 201603/07/2018 Acanthos is nigrican s; Progress : Stable Added By: Sergey Duque Add to Current Problems : NO ProblemS tatus: Resolve Not Available [facility] 2 21:20:55 Prolapse of female genital organs 71338738 Completed 201703/07/2018 Incompet ence or weakenin g of pubocerv ical tissue; Progress : Stable Added By: Yen Burton Add to Current Problems : NO ProblemS tatus: Resolve Not Available [facility] 2 21:20:53 Morbid obesity 279669616 Completed 201603/17/2018 Morbid obesity; Progress : Stable Added By: Sergey Duque Add to Current Problems : NO ProblemS tatus: Resolve Morbid obesity; Location : None Progress : Stable Added By: Sergey Duque Add to Current Problems : YES ProblemS tatus: Current Not Available [facility] 2 21:20:56 Procedur e Completed 201805/03/2021 Encounte r for other preproce dural examinat ion; Severity : Moderate Progress : Stable Added By: Socorro Cazares Add to Current Problems : YES ProblemS tatus: Current [facility] 2 15:59:01 Female genital organ symptoms [id number] Completed 201703/07/2018 Pelvic pain; Progress : Stable Added By: Hodan Ye Add to Current Problems : NO ProblemS tatus: Resolve Pelvic pain; Location : None Progress : Stable Added By: Hodan Ye Add to Current Problems : YES ProblemS tatus: Resolve Not Available [facility] 2 21:20:54 Malaise and fatigue 968489284 Completed 201603/07/2018 Malaise and Fatigue; Progress : Stable Added By: Sergey Duque Add to Current Problems : NO ProblemS tatus: Resolve Fatigue; Progress : Stable Added By: Maria T Frey Add to Current Problems : NO ProblemS tatus: Resolve; Start Date : 07/17/19 17 Malai se and Fatigue; Location : None Progress : Stable Added By: Sergey Duque Add to Current Problems : YES ProblemS tatus: Current Not Available [facility] 2 21:20:55 Procedur e on genitour inary system Completed 201805/03/2021 Encounte r for surgical aftercar e followin g surgery on the genitour inary system; Severity : Moderate Progress : Stable Added By: Socorro Cazares Add to Current Problems : YES ProblemS tatus: Current Harper Timi null, [facility] 2 15:59:03 Postoper ative care Completed 201805/03/2021 Encounte r for surgical aftercar e followin g surgery on the genitour inary system; Severity : Moderate Progress : Stable Added By: Socorro Cazares Add to Current Problems : YES ProblemS tatus: Current Harper Timi null, [facility] 2 15:58:58 Abnormal weight gain 589697415 Completed 201602/04/2017 Abnormal weight gain; Location : None Progress : Stable Added By: Sergey Duque Add to Current Problems : YES ProblemS tatus: Resolve Not Available [facility] 2 21:20:57 Venereal disease screenin g Completed 201609/14/2016 Screenin g for STDs; Progress : Stable Added By: Antionette Elizabeth Add to Current Problems : NO ProblemS tatus: Resolve Not Available [facility] 2 21:20:57 Hysterec meghan Active 2022 Glenna Millport null, [facility] 3 11:38:50 Problem Notes None recorded. Procedures Surgical History Date Name Laterality Status Provider Name and Address Organization Details Recorded Time 9 procedure on stomach completed Margaret Pietrusiak [facility] 03/22/2021 23:53:18 7 Date of Last Pap Smear completed Margaret Beyond Meattrusiak [facility] 03/22/2021 23:48:34 Tlh uterus 250 g or less completed Glenna Aiden [facility] 05/09/2022 11:38:13 Imaging Results None recorded. Procedure Notes None recorded. Medical Equipment None Reported. Allergies No known drug allergies Medications Name Sig Start Date Stop Date Status Note LastModified by Organization Details LastModified Time fluconazo le 150 mg tablet take 1 tablet (150 mg) by oral route. 03/23 completed fluconaz ole 150 mg oral tablet RxNorm: 560263 Allow Substitu tion: True Refill Denied: No Edited by: Socorro Rankin) on 12/22/19 20 Stopped by: Socorro Rankin) on Not Available Not Available Not Available metronida zole 500 mg tablet TAKE 1 TABLET BY MOUTH TWICE DAILY WITH FOOD FOR 7 DAYS. DO NOT DRINK ALCOHOL WHILE TAKING THIS MEDICATI ON 05/09 completed Not Available Not Available Not Available phentermi ne 37.5 mg tablet TAKE 1/2 TABLET BY MOUTH TWICE DAILY 09/27 completed Not Available Not Available Not Available clindamyc in 1 %-benzoyl peroxide 5 % topical gel APPLY EXTERNAL LY TO FACE EVERY MORNING FOR ACNE 03/23 completed Not Available Not Available Not Available peg-elect rolyte solution 420 gram oral solution MIX AND TAKE DIRECTED BY OFFICE 03/14 completed Not Available Not Available Not Available omeprazol e 40 mg capsule,d elayed release active Not Available Not Available Not Available adapalene 0.1 % topical cream APPLY EXTERNAL LY TO FACE EVERY NIGHT AT BEDTIME FOR ACNE 03/23 completed Not Available Not Available Not Available Vitamin tablet 04/20 completed Multivit mckeon Allow Substitu tion: True Refill Denied: No Refill DateOccu rred: 09/10/19 14 Not Available Not Available Not Available Metrogel Vaginal 0.75 % (37.5 mg/5 gram) 1 applicat orful nightly x 7 nights, then twice per week at bedtime x 4 months 09/17 completed MetroGel 0.75% Vaginal Gel RxNorm: 646262 Allow Substitu tion: True Refill Denied: No Not Available Not Available Not Available Diflucan 100 mg tablet take 1 po now and repeat in 72 hrs. 06/19 completed Diflucan 100mg Tablet RxNorm: 897890 Allow Substitu tion: True Refill Denied: No Not Available Not Available Not Available triamcino lone acetonide 0.1 % topical ointment APPLY THIN LAYER TOPICALL Y TO THE AFFECTED AREA TWICE DAILY active Not Available Not Available No t Available promethaz ine 25 mg tablet TAKE 1/2 TABLET BY MOUTH EVERY 6 HOURS NEEDED FOR NAUSEA 03/14 completed Not Available Not Available Not Available boric acid (bulk) powder Pharmacy is compound ing this for vaginal inserts. Pt is to place one supposit ory in vagina at HS. 09/27 completed boric acid (bulk) miscella neous Powder Allow Substitu tion: True Refill Denied: No Edited by: Kalina Samson ) on 12/23/19 Stopped by: Kalina Samson ) on Not Available Not Available Not Available ketoconaz ole 2 % topical cream APPLY TOPICALL Y TO THE AFFECTED AREA EVERY DAY 05/09 completed Not Available Not Available Not Available Terazol 7 0.4 % vaginal cream Insert 1 applicat orful(s) in vagina at bedtime for 7 days 11/27 completed Terazol 7 0.4% Vaginal Cream RxNorm: 542715 Allow Substitu tion: True Refill Denied: No Not Available Not Available Not Available 04/20 (28) 1 mg-20 mcg (21)/75 mg (7) tablet Take 1 tablet(s ) by mouth daily as directed 04/03 completed 04/20 28 Day 20mcg/1m g/75mg Tablet RxNorm: 4299447 Allow Substitu tion: True Refill Denied: No Not Available Not Available Not Available amoxicill in 03/23 completed amoxicil agustin RxNorm: 569388 Allow Substitu tion: False Refill Denied: No Refill DateOccu rred: 12/22/19 Edited by: Socorro Rankin) on 12/22/19 Stopped by: Socorro Rankin) on Not Available Not Available Not Available Flagyl 03/07 completed Flagyl RxNorm: 6922 Allow Substitu tion: True Refill Denied: No Refill DateOccu rred: 07/17/19 17 Not Available Not Available Not Available clindamyc in HCl One capsule BID for 7 days 12/20 completed Clindamy alicia HCl 300mg Capsules Allow Substitu tion: True Refill Denied: No Not Available Not Available Not Available Clindamyc in 03/23 completed Clindamy alicia Allow Substitu tion: False Refill Denied: No Refill DateOccu rred: 12/22/19 Edited by: Socorro Rankin) on 12/22/19 Stopped by: Socorro Rankin) on Not Available Not Available Not Available RepHresh vaginal gel 03/14 completed Not Available Not Available Not Available Lomaira 8 mg tablet TAKE 1 TABLET BY MOUTH DAILY AFTER LUNCH active Not Available Not Available No t Available Vitals Date Recorded Body height Body mass index (BMI) Body weight Body temperature Systolic blood pressure Diastolic blood pressure Provider Name and Address Organization Details Last Updated DateTime 2 172.72 cm 35.4 kg/m2 878841. 23 g 97.5 [degF] 114 mm[Hg] 74 mm[Hg] Wendi Vincentlister [facility] 2 12:25:35 Date Recorded Body height Body mass index (BMI) Body weight Systolic blood pressure Diastolic blood pressure Provider Name and Address Organization Details Last Updated DateTime 05/09/2022 172.72 cm 36.3 kg/m2 219530. 58 g 106 mm[Hg] 76 mm[Hg] Serenity Knutson [place] [facility] 3 12:34:24 Date Recorded Body height Body mass index (BMI) Body weight Body temperature Systolic blood pressure Diastolic blood pressure Provider Name and Address Organization Details Last Updated DateTime 3 172.72 cm 37.3 kg/m2 097204. 85 g 97 [degF] 112 mm[Hg] 60 mm[Hg] Vinny Powers [facility] 3 12:30:29 Date Recorded Body height Body mass index (BMI) Body weight Systolic blood pressure Diastolic blood pressure Provider Name and Address Organization Details Last Updated DateTime 03/14/2023 172.72 cm 36.6 kg/m2 179726.7 6 g 122 mm[Hg] 80 mm[Hg] Joleen Patten [facility] 3 10:09:02 Date Recorded Body height Body mass index (BMI) Body weight Body temperature Systolic blood pressure Diastolic blood pressure Provider Name and Address Organization Details Last Updated DateTime 4 172.72 cm 38.6 kg/m2 441942. 03 g 97.4 [degF] 118 mm[Hg] 74 mm[Hg] Peggy Sanchez [facility] 4 15:56:40 Social History Question Answer Notes LastModified by Organizat ion Details LastModified Time Tobacco Smoking Status Never Smoker Antionette Elymerline hayward, [facility] 03/23/2021 12:26:32 What Is Your Level Of Alcohol Consumption? Occasional Information not available 09/27/2021 Are You Blind Or Do You Have Difficulty Seeing? No Information not available 05/09/2021 Are You Deaf Or Do You Have Serious Difficulty Hearing? No Information not available 05/09/2021 What Type Of Diet Are You Following? REGULAR Information not available 05/09/2021 How Many Children Do You Have? 3 Information not available 03/23/2021 What Is Your Relationship Status? Single Information not available 03/22/2021 Are You Sexually Active? Yes Information not available 03/22/2021 Do You Use Any Illicit Or Recreational Drugs? No Information not available 03/23/2021 Sex: Unknown Functional Status Question Answer Note LastModified by Organization D etails LastModified Time What is your exercise level? Moderate Information not available 09/27/2021 Mental Status None recorded. Family History Relationship Description Onset Age of this Age Resolved Age Notes LastModified by Organization Details LastModified Time Father No current problems or disability [email or web address] Not available 23:53:26 Mother No current problems or disability [email or web address] Not available 23:53:26 Medical History Condition Response High Blood Pressure N Cytomegalovirus N Hyperthyroidism N MRSA N Blood Transfusion N Depression N Incontinence N Anxiety Disorder N Autoimmune disease N Arthritis N Polycystic Ovarian Syndrome N Hematuria N Varicosities N Stroke N Seasonal allergies N Crohn's Disease N Alzheimer's/Dementia N COPD/Emphysema N History of Abnormal Pap N Fibromyalgia N Kidney Infection N Kidney Disease N Gallbladder disease N Von Willebrand disease N Eating Disorder N Diabetes Mellitus (non-insulin dependent ) N Ovarian Problems N Frequent Urinary Tract infections N Osteopenia N GERD (reflux) N Diabetes (insulin dependent) N Heart Attack N Asthma N Endometrial Cancer N Hepatitis N Pulmonary Embolism N RPR N Chicken Pox N Other Cancer N Colon Cancer N Herpes (HSV) N Breast Cancer N Lung Cancer N Hypothyroidism N Panic Attacks N Neurological Disorder N Deep Vein Thrombosis N Shingles N Tuberculosis/Positive PPD N Cervical Cancer N Chlamydia N Endometriosis N HPV/Genital Warts N IBS (Irritable Bowel Syndrome) N High Cholesterol N Liver Disease N Ulcer N HIV N Sickle Cell Disease/Trait N ADD/ADHD N Anemia N Multiple Sclerosis N Gonorrhea N Headaches/migraines N Ovarian Cancer N Seizures/Epilepsy N Fibroids N Lupus N Rubella N Blood Clotting Disorder N Bipolar Disorder N Diabetes Mellitus (during ) N Ulcerative Colitis N Heart Disease N Osteoporosis N Gynecological History Statement/Question Response Date of Last Colonoscopy Date of LMP Most Recent Bone Density HPV Vaccine N Date of Last Pap Smear 04/23/2016 Most Recent Mammogram Current Control Method Hysterectom y Age at Menarche 15 Obstetrics History GPAL:G 4 P 3 0 1 3 Type Value Full Term 3 Spontaneous 1 Living 3 Total 4 Past Encounters Encounter ID Performer Location Encounter Start Date Encounter Closed Date Diagnosis/Indication Diagnosis SNOMED-CT Code Diagnosis ICD10 Code Diagnosis Note [id number] Patricia guerin CNM [facility] [address] [place] [address] 03/23/2021 12:16:58 03/23/2021 15:24:59 Vaginitis 56132684 N76.0 discussed vulvar care guidelines and safe sex Fatigue 10294897 R53.83 rec womens daily vitamin with Iron Venereal d isease screening 390523567 Z11.3 Pain of breast 83505697 N64.4 rec evening primrose oil, has increased caffine lately and rec to decrease, breast exam normal no nipple discharge [id number] Sergey Duque MD [facility] [address] [place] [address] 05/09/2021 12:20:18 05/10/2021 11:33:51 Body mass index 30+ - obesity 480926279 Z68.36 COUNSELING was provided today regarding the following topics: healthy eating habits. Patient education given on weight management ., regular exercise. Patient handout given on Fitness, crossfit exercise emphasized . Instructed to strictly limit food calories to 12 oz/day and processed starches., and Instructed to stop the prescribed medication immediatel y if you experience chest pain or shortness of breath.. RECOMMENDA TIONS given include: a graduated exercise program ( 4-5 days per week ), stress reduction, You should follow the recommenda tions for fluid calories, limit processed starches, and diet caloric intake recommenda tions., and Encouraged at least 6 hours of sleep per night.. stressed importance of weight loss. Download cognitive therapy APPs ([facility] [employer], [place]) FOLLOW-UP: Schedule a follow-up visit in 1 month. [id number] [address] [place] [place] [address] 09/27/2021 12:02:44 09/27/2021 13:17:34 Gynecologic examination 52757049 Z01.419 Surveillan ce of contraception 442548706 Z30.40 [facility] 563199412 Z30.09 Venereal d isease screening 287332766 Z11.3 [id number] [facility] [address] [place] [address] 05/09/2022 12:17:01 05/10/2022 15:21:43 Fatigue 45082207 R53.83 Venereal d isease screening 965758418 Z11.3 Generalize d tenderness of breast 401297288 N64.4 No tenderness today. Exam WNL. Encouraged to increase water. Avoid caffeine intake. [id number] Patricia guerin, [address] [place] [address] 08/17/2022 11:49:06 08/29/2022 16:18:32 Venereal disease screening 058322712 Z11.3 Reviewed safe sex practices Bacterial vaginosis 4197 31402 N76.0 [id number] JANET Porras [facility] [address] [place] [address] 03/14/2023 10:03:53 03/14/2023 10:23:41 Gynecologic examination 02914063 Z01.419 37y.o. here for annual exam. - Mammo at age 42, no increased risk -diet and exercise reviewed - RTO for annual or PRN Acute vaginitis 74734068 N76.0 - Reviewed vulvar hygiene: avoid tight or moist clothing, soaps, Vagisil and other wipes, cotton underwear only and sleep without, unscented detergent - Start probiotic - RTO for annual or as needed Laceration of skin 49162 5007 T14.8XXA If ineffectiv e on area of coxxyz will need to f/u with Dermatolog ist Depression screening 171 433601 Z13.31 PHQ9: Negative. Pt educated on normal scoring. No further management needed. [id number] JANET [facility]LEX[facility] [address] [place] [address] 09/12/2023 15:45:26 09/12/2023 16:40:19 Acute vaginitis 42356264 N76.0 Pt comes in today for Infection/ STI testing. Discussed the various types of Infections and STIs, related symptoms and the potential consequenc es (including effects on fertility) of STI. Reviewed ways to limit exposure and prevention techniques . Vulvar care guidelines and safe sex practices reviewed. TX pending results. Accepts STI blood work Venereal d isease screening 896301518 Z11.3 Weight gain 1568171 R63. 5 Discussed semaglutid e injections , will call once available. Frances kinsey thirty minutes spent with patient in consultati on (>50% face-to-fa ce). Patient labs and notes were reviewed. Patient questions were answered. Additional patient care was coordinate d. Health Concerns Section Related Observation LastModified by Organization Banai rika LastModified Time None Recorded Concern Status LastModified by Organization Details LastModified Time None Recorded Advance Directives Directive None Recorded Payers Encounter Date Sequence Insurance Name Policy Number Policy Hernandez Covered Member ID Hernandez Member ID Guarantor Name 09/27/2021 1 [facility] - DOS ON OR AFTER 20 (MEDICAID REPLACEMENT - HMO) Shontavia A Echeverria [id number] Shontavia A Echeverria 05/09/[address] [facility] ON OR AFTER 09/29/20 (MEDICAID REPLACEMENT - HMO) Shontavia A Echeverria [id number] Shontavia A Echeverria 08/17/[address] [facility] ON OR AFTER 09/29/20 (MEDICAID REPLACEMENT - HMO) Shontavia A Echeverria [id number] Shontavia A Echeverria 03/14/2023 1 [place] [id number] Shontavia A Echeverria [id number] 2 Shontavia A Echeverria 09/12/2023 1 [employer] [facility] ON OR AFTER 03/01/2020 (MEDICAID REPLACEMENT - HMO) Shontavia A Echeverria [id number] Shontavia A Echeverria Notes Date Note Type Note Provider Name and Address Organization Details Recorded Time 09/27/2021 text/html Annual GYNReport ed bypatient.History:no gynecologic complaints Menstrual cycle:Normal menses Urinary symptoms:No hematuria; No incontinence Vulva:No genital lesion Vagina:Normal vaginal discharge Breast:No breast pain; No breast lump; No nipple discharge Sexual complaints:No sexual complaints; No pain during intercourse; Normal libido Menopausal Symptoms:No menopausal symptoms; Normal vaginal lubrication Psychological symptoms:No depression; No anxiety; No PMDD Preventive measures:Encourage self breast examination; Encourage regular exercise; Encourage regular mammograms starting age 40 Yuni Hawk CNM [address] [place], [address], [facility] 09/27/2021 12:46:19 05/09/2022 text/html Patient presents for intermittent breast tenderness. She has also been experiencing increased fatigue. Requesting labs and STD testing today. Yuni Hawk CNM [address] [place], [address], [facility] 05/10/2022 15:09:54 08/17/2022 text/html Patient is here for std screening, refills on boric acid pill Patricia Cruz CNM [address] [place], [address], [facility] 08/17/2022 12:40:29 03/14/2023 text/html Annual GYNReport ed bypatient.Menstrual cycle:s/p hyst Urinary symptoms:No hematuria; No incontinence Vulva:No genital lesion Vagina:White Breast:No breast pain; No breast lump; No nipple discharge Sexual complaints:No sexual complaints; No pain during intercourse; Normal libido Menopausal Symptoms:No menopausal symptoms; Normal vaginal lubrication Psychological symptoms:No depression; No anxiety; No PMDD Vikas is here for her AEXHer last pap was 04/23/2016Her hx is notable for a hysterectomyShe currently c/o vaginal discharge. She denies odor/itchingShe has a hx of recurrent vaginal infectionsShe has an area on her coccyzx that she would like to have evaluated JANET Porras [address] [place] [address], [phone], [facility] 03/14/2023 10:23:31 09/12/2023 text/html Vikas is her e for vaginal infection. She has been having white discharge for about a week. No odor, or itching. She will like STD check and blood work. LUIS ALEX[address], [place], [address], [facility] 09/12/2023 16:06:19 OBGyn Episode Ob Episode Information Episode Created Date Number of Fetuses Patient Bloodtype Patient rh Status Prepregnancy Weight lbs Domestic Partner Domestic Partner Phone Father Name Transmission And Protection Engineer Status 06/16/19 22 1 CLOSED Fetus Data First Name Last Name Admitted to NICU Weight (g) Sex Living Outcome Pediatric Complications Fetus ID Race Codes Race Delivery Type 2721.55 2 [phone] [id number] Inocente Calculation Initial Inocente Date Initial Exam Date Initial Exam Provider Initial Ultrasound Date Last Menstrual Period Date Ultra Sound Weeks Gestation 0 Eighteen To Twenty Week Inocente Update Ultra Sound Date Fundal Height At Umbil Quickening Date Ultra Sound Latest Weeks Gestation Final Inocente Confirmed By Final Inocente Confirmed Date Final Inocente Date Ultra Sound Latest Days Gestation 0 0 Menstrual History Last Menstrual Date Menses Monthly On Bcp Conception Prior Menses Frequency Hcg Plus Date Menarche Onset Age Delivery Information Delivery Date Delivery Type Labor Anesthesia Weeks Gestation Incision Type Labor Labor Length Hrs Delivered By Post Complications Tubal Sterilization Discharge Date Comments 9 false Discharge Information Feeding Method Contraceptive Method Maternal HG B and HCT Levels Ob Episode Information Episode Created Date Number of Fetuses Patient Bloodtype Patient rh Status Prepregnancy Weight lbs Domestic Partner Domestic Partner Phone Father Name Transmission And Protection Engineer Status 05/09/19 23 1 CLOSED Fetus Data First Name Last Name Admitted to NICU Weight (g) Sex Living Outcome Pediatric Complications Fetus ID Race Codes Race Delivery Type 3175.14 [phone] [id number] Inocente Calculation Initial Inocente Date Initial Exam Date Initial Exam Provider Initial Ultrasound Date Last Menstrual Period Date Ultra Sound Weeks Gestation 0 Eighteen To Twenty Week Inocente Update Ultra Sound Date Fundal Height At Umbil Quickening Date Ultra Sound Latest Weeks Gestation Final Inocente Confirmed By Final Inocente Confirmed Date Final Inocente Date Ultra Sound Latest Days Gestation 0 0 Menstrual History Last Menstrual Date Menses Monthly On Bcp Conception Prior Menses Frequency Hcg Plus Date Menarche Onset Age Delivery Information Delivery Date Delivery Type Labor Anesthesia Weeks Gestation Incision Type Labor Labor Length Hrs Delivered By Post Complications Tubal Sterilization Discharge Date Comments 8 Discharge Information Feeding Method Contraceptive Method Maternal HG B and HCT Levels Ob Episode Information Episode Created Date Number of Fetuses Patient Bloodtype Patient rh Status Prepregnancy Weight lbs Domestic Partner Domestic Partner Phone Father Name Transmission And Protection Engineer Status 05/09/19 23 1 CLOSED Fetus Data First Name Last Name Admitted to NICU Weight (g) Sex Living Outcome Pediatric Complications Fetus ID Race Codes Race Delivery Type 3175.14 [phone] [id number] Inocente Calculation Initial Inocente Date Initial Exam Date Initial Exam Provider Initial Ultrasound Date Last Menstrual Period Date Ultra Sound Weeks Gestation 0 Eighteen To Twenty Week Inocente Update Ultra Sound Date Fundal Height At Umbil Quickening Date Ultra Sound Latest Weeks Gestation Final Inocente Confirmed By Final Inocente Confirmed Date Final Inocente Date Ultra Sound Latest Days Gestation 0 0 Menstrual History Last Menstrual Date Menses Monthly On Bcp Conception Prior Menses Frequency Hcg Plus Date Menarche Onset Age Delivery Information Delivery Date Delivery Type Labor Anesthesia Weeks Gestation Incision Type Labor Labor Length Hrs Delivered By Post Complications Tubal Sterilization Discharge Date Comments 4 Discharge Information Feeding Method Contraceptive Method Maternal HG B and HCT Levels
--- OUTSIDE RECORDS SUMMARY | 2024-05-22 20:49 | XMS_ITS | Clinical Summary ---
Author Organization [facility] Address [address] [place] [address] Phone Care Team Providers Care Tug Master Name Role Phone Popeye Bravo MD Primary Care Provider [phone] Allergies No known active allergies Medications ondansetron (ZOFRAN ODT) 4 mg Tablet, Rapid DissolveIndicati ons:nausea Place 1 Tablet under tongue every 6 hours as needed for Nausea/Vomi ting. 10 Tablet 11/21/2018 2:30 PM CDT 11/21/2018 Active Phentermine (Lomaira) 8 mg TabletIndication s:Obesity (BMI 30.0-34.9) Take 8 mg by mouth daily. After lunch 30 Tablet 4 04/04/2023 Active Active Problems Problem Noted Date Diagnosed Date Post-operative nausea and vomiting 11/21/2018 Post-op pain 11/21/2018 General medical exam 11/20/2018 JEM on CPAP 11/20/2018 Immunizations Immunization Administration Dates Next Due Influenza Seasonal Unspecified Formulation IM Social History Tobacco Use Types Packs/Day Years Used Date Smoking Tobacco: Never Smokeless Tobacco: Never Tobacco Cessation:Counseling Given: Not Answered Alcohol Use Standard Drinks/Week Comments Yes 0 (1 standard drink = 0.6 oz pur e alcohol) social use Comments No Sex and Gender Information Value Date Recorded Sex Assigned at Not on file Legal Sex Female 6:07 AM [employer] Gender Identity Not on file Sexual Orientation Not on file Last Filed Vital Signs Vital Sign Reading Time Taken Comments Blood Pressure 120/74 04/04/2023 10:25 AM [employer] Pulse 71 11/21/2018 4:16 PM CDT Temperature 36.8 C (98.3 F) 11/21/2018 4:16 PM CDT Respiratory Rate 18 11/21/2018 4:16 PM CDT Oxygen Saturation 100% 11/21/2018 4:16 PM CDT Inhaled Oxygen Concentration - - Weight 111.9 kg (246 lb 12.8 oz) 2023 10:25 AM [employer] Height 172.7 cm (5' 8 ) 04/04/2023 10:2 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[employer] Body Mass Index 37.53 04/04/2023 10:25 AM 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[employer] Plan of Treatment Health Maintenance Due Date Last Done Comments HEPATITIS B VACCINES (1 of 3 - 19+ 3-dose series) 2006 CERVICAL CANCER SCREENING 2017 INFLUENZA VACCINE (#1) 2023 01/11/2018 DTAP/TDAP/TD VACCINES (2 - T d or Tdap) 03/04/2030 03/04/2020 HPV VACCINES Aged Out No longer eligi ble based on patient's age to complete this topic Medical Devices Implanted Type 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 08/29/21 Insurance RX allyveS [employer] Commercial RX T[employer] PLANS (INTERNAL) [facility] * Guarantor: [employer] (OM) Account Type Relation to Patient Date of Phone Billing Address Corporate Other [address] [address] Advance Directives For more information, please contact: [phone] * Full Code (Latest Code Status on File) Date Activated Date Inactivated Comments 11/20/2018 10:38 AM 11/21/2018 9:04 PM * Full Code Date Activated Date Inactivated Comments 11/20/2018 7:52 AM 11/20/2018 10:38 AM * Full Code Date Activated Date Inactivated Comments 11/20/2018 6:55 AM 11/20/2018 7:52 AM Care Teams Tug Master Relationship Specialty Start Date End Date Popeye Bravo MD [address] [place] [address] PCP - General Family Practice 11/07/18
--- OUTSIDE RECORDS SUMMARY | 2024-05-22 20:50 | XMS_ITS | Clinical Summary ---
Author Organization [facility] Address [address] [place] [id number] Care Team Providers Care Car Framer Name Role Phone Popeye Bravo MD Primary Care Provider [phone] Allergies No known active allergies Medications hydrOXYzine (VISTARIL) 25 mg capsule Take 1 capsule (25 mg total) by mouth 3 (three) times a day as needed for itching 30 capsule 11/01/2023 Active Encounters Date Type Department Care Team Description 05/08/2024 9:25 PM [facility] [employer] [facility] - 05/08/2024 9:26 PM [facility] Emergency Department [address] [place] [address] Discharge Disposition: Left without being seen from Last 3 Months Social History Tobacco Use Types Packs/Day Years Used Date Smoking Tobacco: Never Assessed Personal Safety Answer Date Recorded Have you ever been in or are you currently in a harmful physical or emotional relationship or is someone making you feel afraid or unsafe? Denies 05/08/2024 Comments No Sex and Gender Information Value Date Recorded Sex Assigned at Not on file Legal Sex Female 8:53 AM [employer]KE [employer] Gender Identity Not on file Sexual Orientation Not on file Obstetrics History Last Filed Vital Signs Vital Sign Reading Time Taken Comments Blood Pressure 126/67 05/08/2024 7:42 PM [employer] Pulse 86 05/08/2024 7:42 PM [employer] Temperature 36.7 C (98.1 F) 05/08/2024 7:42 PM [employer] Respiratory Rate 16 05/08/2024 7:42 PM [employer]KE [employer]MER Oxygen Saturation 100% 05/08/2024 7:42 PM [employer]KE TR[employer]MER Inhaled Oxygen Concentration - - Weight 103.4 kg (228 lb) 05/08/2024 7:42 PM [employer] Height 172.7 cm (5' 8 ) 05/08/2024 7:42 PM [employer]MER Body Mass Index 34.67 05/08/2024 7:42 PM [employer]KE [employer]MER Plan of Treatment Health Maintenance Due Date Last Done Comments Depression Screening 1987 Hepatitis C Screening 1987 Varicella Vaccines (1 of 2 - 13+ 2-dose series) 2000 Regular Well Visit/Exam 18-64 2005 Covid-19 Vaccine (3 - 2023- season) 2023 07/14/2021, 05/23/2021 Influenza Vaccine (#1) 2023 01/11/2018 DTaP/Tdap/Td Vaccine (9 - Td or Tdap) 03/04/2030 03/04/2020, 05/24/2009, 09/01/1998, Additional history exists Hepatitis B Screening Completed 01/11/1999 , 09/01/1998, 03/05/1997 HPV Vaccines Aged Out No longer eligi ble based on patient's age to complete this topic Pneumococcal vaccine <65 Aged Out No longer eligible based on patient's age to complete this topic Procedures Procedure Name Priority Date/Time Associated Diagnosis Comments ECG 12-LEAD STAT 05/08/2024 7:46 PM [employer] CAKE TRIMMER from Last 3 Months Results * ECG 12 lead (05/08/2024 7:46 PM LIN[employer]ED CAKE TRIMMER) 05/08/2024 7:46 PM [employer] CAKE TR[employer]MER Narrative [facility] - 05/09/2024 7:45 AM [employer]SEED CAKE TRIMMER Vent Rate: 84 bpm RR Interval: 714 msec TX Interval: 143 msec QRS Duration: 101 msec QT Interval: 354 msec QTC Interval: 394 msec P-R-T [place]: 57 - 15 - 38 degrees IMPRESSION: SINUS RHYTHM NORMAL ECG Electronically Signed By: Keenan Minor MD B us Adwoa Carrillo MD ECG ORDERABLES Final Result [facility] from Last 3 Months Insurance [facility] Member Subscriber Plan / Payer ( fective 2018-Present) Name:Vikas Echeverria Relation to Subscriber:Self Name:Vikas Echeverria Payer ID:[id number] (NAIC) Type: [employer] Address: [id number] Care Teams Car Framer Relationship Specialty Start Date End Date Popeye Bravo MD [address] [address] PCP - General 10/19/18
--- OUTSIDE RECORDS SUMMARY | 2024-05-22 20:50 | XMS_ITS | Data Portability ---
Author Organization [facility] Kev[facility] Address [address] [place] [address] Care Team Providers Care Store Stock Help Name Role Phone SERG LEVIN Primary Care Provider FLORY ADAMES Joint Cutter Assessment Encounter Date Assessment Date Assessment LastModified by Organization Details LastModified Time 07/19/2022 07/19/2022 Pt left physical form at home. Encouraged to reschedule for completion of such. To include, pt also c/o extreme diaphoresis assoc. w/ nervousness. She has not narrowed down triggers that provoke nervousness. Encouraged to fu w/ PCP for treatment of anxiety along with annual labs. Not available 07/19/2022 11:05:01 Plan of Treatment Reminders Order Date Submit Date Provider Last Modified By Organization Details Last Modified Time Details Appointments None recorded. Lab Mycobacter ium tuberculos is stimulated gamma interferon , qual, blood 2023 024 YOLIS IRIZARRY, [address], [address], [place], [address], 4 20:08:24 prolactin, serum 2022 023 YOLIS IRIZARRY, [address], [address], [place], [address], 3 08:51:07 HbA1c (hemoglobi n A1c), blood 2022 023 Tos[address] SANDOVAL, [address], [place], [address], 3 08:51:06 iron + total iron-adelaide ng capacity (TIBC), serum 2022 023 YOLIS IRIZARRY, [address], [address], [place], [address], 3 08:51:05 vitamin B12 + folate, serum or blood 2022 023 YOLIS IRIZARRY, [address] pedrojaquistevenson [address], [address], [place], [address], 3 08:51:04 CBC w/ auto diff 2022 023 YOLIS IRIZARRY, [address], [address], [place], [address], 3 22:12:57 lipid panel, serum 2022 023 YOLIS IRIZARRY, [address] Faulk[address]je[address] pierre [address], [address], [place], [address], 3 22:12:55 TSH, ultra-sens itive, serum 2022 023 YOLIS IRIZARRY, [address], [address], [place], [address], 3 08:51:02 magnesium, serum or plasma 2022 023 YOLIS IRIZARRY, [address], [address], [place], [address], 3 22:12:56 vitamin D, 25-hydroxy , total, serum 2022 023 YOLIS PICKERINGMARICHUY, [address], [address], [place], [address], 3 08:51:08 Mycobacter ium tuberculos is stimulated gamma interferon , qual, blood 2022 023 YOLIS [facility], [address], [address], [place], [address], 3 14:10:15 Mycobacter ium tuberculos is stimulated gamma interferon , qual, blood 2021 022 YOLIS [facility], [address], [place], [address], 2 17:09:20 Referral dermatolog ist [facility] [address] [facility], [address] [facility], [address], [place], [address], 4 18:39:27 endocrinol ogy referral [address], [address], [address], [place], [address], 3 09:50:[address] referral 2022 023 [facility] Care Physician Referral Management, [address] [facility], [address], [place], [address], 3 09:45:27 Procedures None recorded. Surgeries None recorded. Imaging None recorded. Medication Orders None recorded. Patient TargetsNo targets recorded. 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: care instructions dior Not available 10/29/2022 07:56:40 abnormal sweating: care instructions ronnrnock Not available 10/29/2022 07:57:00 fatigue: care instructions jcrnock Not available 10/29/2022 07:56:47 depression treatment: care instructions colinrgretelck Not available 10/29/2022 07:56:04 A healthy lifestyle: care instructions ronnrnock Not available 10/24/2022 13:05:08 A healthy lifestyle: care instructions colinadenck Not available 10/29/2022 07:55:32 07/17/2023 [id number] A healthy lifestyle: care instructions Not available 07/18/2023 11:37:03 learning about tuberculosis (TB) Not available 07/17/2023 11:30:10 Reason for Referral Yeast Maker Referral for Ta chycardia Referring Physician: Elli Bah [facility], Encounter Date: 10/24/2022 Endocrinology Referral for E xcessive sweating Referring Physician: Elli Bah [facility], Encounter Date: 10/24/2022 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 Not Available [facility] ([facility]) [address] [facility], [place], [address], 07/28/2021 17:09:20 07/27/19 22 07/27/2021 QUANT IFERO N-TB GOLD PLUS quantiferon criteria Commen t The Quant iFERO N-TB Gold Plus resul t is deter mined by subtr actin g the Nil value from eithe r TB antig en (Ag) tube. The mitog en tube serve s as a contr ol for the test. Not Available [facility] ([facility]) [address] [place], [address], 07/28/2021 17:09:20 07/27/19 22 07/28/2021 QUANT IFERO N-TB GOLD PLUS quantiferon TB1 Ag value 0.12 IU/mL Not Available [facility] ([facility]) [address] [place], [address], 07/28/2021 17:09:20 07/27/19 22 07/28/2021 QUANT IFERO N-TB GOLD PLUS quantiferon TB2 Ag value 0.21 IU/mL Not Available [facility] ([facility]) [address] [facility], [place], [address], 07/28/2021 17:09:20 07/27/19 22 07/28/2021 QUANT IFERO N-TB GOLD PLUS quantiferon nil value 0.03 IU/mL Not Available [facility] ([facility]) [address] [place], [address], 07/28/2021 17:09:20 07/27/19 22 07/28/2021 QUANT IFERO N-TB GOLD PLUS quantiferon mitogen value >10.00 IU/mL Not Available [facility] ([facility]) [address] [place], [address], 07/28/2021 17:09:20 07/27/19 22 07/28/2021 QUANT IFERO N-TB GOLD PLUS quantiferon- TB gold plus Negati ve negati ve Chemi lumin escen ce immun oassa y metho dolog y Not Available [facility] ([facility]) [address] [place], [address], 07/28/2021 17:09:20 07/20/19 23 07/20/2022 QUANT IFERO N-TB GOLD PLUS quantiferon incubation Incuba tion perfor med. Not Available [facility] ([facility]) [address] [facility], [place], [address], 07/21/2022 14:10:15 07/20/19 23 07/20/2022 QUANT IFERO N-TB GOLD PLUS quantiferon criteria Commen t Quant iFERO N-TB Gold Plus is a quali tativ e indir ect test for M tuber culos is infec tion (incl uding disea se) and is inten ded for use in conju nctio n with risk asses sment , radio graph y, and other medic al and diagn ostic evalu ation s. The Quant iFERO N-TB Gold Plus resul t is deter mined by subtr actin g the Nil value from eithe r TB antig en (Ag) value . The Mitog en tube serve s as a contr ol for the test. Not Available [facility] ([facility]) [address] [facility], [place], [address], 07/21/2022 14:10:15 07/20/19 23 07/21/2022 QUANT IFERO N-TB GOLD PLUS quantiferon- TB gold plus Negati ve negati ve No respo nse to M tuber culos is antig ens detec stephani. Infec tion with M tuber culos is is unlik amelie, but high risk indiv idual s shoul d be consi dered for addit ional testi ng (ATS/ IDSA/ CDC Clini alycia Pract ice Guide lines , 2017) . The refer ence range is an Antig en minus Nil resul t of <0.35 IU/mL . Chemi lumin escen ce immun oassa y metho dolog y Not Available [facility] ([facility]) [address] [facility], [place], [address], 07/21/2022 14:10:15 07/20/19 23 07/21/2022 QUANT IFERO N-TB GOLD PLUS quantiferon TB1 Ag value 0.08 IU/mL Not Available [facility] ([facility]) [address] [facility], [place], [address], 07/21/2022 14:10:15 07/20/19 23 07/21/2022 QUANT IFERO N-TB GOLD PLUS quantiferon TB2 Ag value 0.04 IU/mL Not Available [facility] ([facility]) [address] [place], [address], 07/21/2022 14:10:15 07/20/19 23 07/21/2022 QUANT IFERO N-TB GOLD PLUS quantiferon nil value 0.02 IU/mL Not Available [facility] ([facility]) [address] [place], [address], 07/21/2022 14:10:15 07/20/19 23 07/21/2022 QUANT IFERO N-TB GOLD PLUS quantiferon mitogen value >10.00 IU/mL Not Available [facility] ([facility]) [address] [place], [address], 07/21/2022 14:10:15 10/25/19 23 10/24/2022 LIPID PANEL cholesterol, total 187.7 mg/dL 140.0- 200.0 Not Available [facility] [address], [place], [address], 10/24/2022 22:12:55 10/25/19 23 10/24/2022 LIPID PANEL triglyceride s 44 mg/dL <=150 Not Available [facility] [address], [place], [address], 10/24/2022 22:12:55 10/25/19 23 10/24/2022 LIPID PANEL HDL cholesterol 83.2 mg/dL 40.0-1 00.0 Not Available [facility] [address] [facility] [address], [place], [address], 10/24/2022 22:12:55 10/25/19 23 10/24/2022 LIPID PANEL VLDL cholesterol alycia 8.80 mg/dL 5.00-4 0.00 Not Available [facility] [address], [place], [address], 10/24/2022 22:12:55 10/25/19 23 10/24/2022 LIPID PANEL LDL chol calc ([facility]) 95.7 mg/dL 0.0-99 .0 Not Available [facility] [address], [place], [address], 10/24/2022 22:12:55 10/25/19 23 10/24/2022 MAGNE SIUM magnesium 1.92 mg/L 1.70-2 .50 Not Available [facility] [address] [facility] [address], [place], [address], 10/24/2022 22:12:56 10/25/19 23 10/24/2022 CBC WITH DIFFE RENTI AL/PL ATELE T WBC 3.2 K/uL 3.4-10 .8 below low normal Not Available [facility] [address], [place], [address], 10/24/2022 22:12:57 10/25/19 23 10/24/2022 CBC WITH DIFFE RENTI AL/PL ATELE T RBC 4.4 M/uL 4.2-5. 4 Not Available [facility] [address], [place], [address], 10/24/2022 22:12:57 10/25/19 23 10/24/2022 CBC WITH DIFFE RENTI AL/PL ATELE T hemoglobin 12.7 g/dL 11.5-1 5.5 Not Available [facility] [address] [facility] [address], [place], [address], 10/24/2022 22:12:57 10/25/19 23 10/24/2022 CBC WITH DIFFE RENTI AL/PL ATELE T hematocrit 39.4 % 36.0-4 8.0 Not Available [facility] [address] [facility] [address], [place], [address], 10/24/2022 22:12:57 10/25/19 23 10/24/2022 CBC WITH DIFFE RENTI AL/PL ATELE T MCV 90 fL 80-95 Not Available [facility] [address], [place], [address], 10/24/2022 22:12:57 10/25/19 23 10/24/2022 CBC WITH DIFFE RENTI AL/PL ATELE T MCH 29 pg 27-32 Not Available [facility] [address] [facility] [address], [place], [address], 10/24/2022 22:12:57 10/25/19 23 10/24/2022 CBC WITH DIFFE RENTI AL/PL ATELE T MCHC 32 g/dL 32-36 Not Available [facility] [address] [facility] [address], [place], [address], 10/24/2022 22:12:57 10/25/19 23 10/24/2022 CBC WITH DIFFE RENTI AL/PL ATELE T RDW 12.6 % 11.5-1 4.5 Not Available [facility] [address] [facility] [address], [place], [address], 10/24/2022 22:12:57 10/25/19 23 10/24/2022 CBC WITH DIFFE RENTI AL/PL ATELE T platelets 211 K/uL 155-37 9 MPV 12.2 FL 8.9-1 2.7 N Not Available [facility] [address] [facility] [address], [place], [address], 10/24/2022 22:12:57 10/25/19 23 10/24/2022 CBC WITH DIFFE RENTI AL/PL ATELE T neutrophils 46.1 % 40.0-7 4.0 Not Available [facility] [address], [place], [address], 10/24/2022 22:12:57 10/25/19 23 10/24/2022 CBC WITH DIFFE RENTI AL/PL ATELE T lymphs 45.7 % 14.0-4 6.0 Not Available [facility] [address] [facility] [address], [place], [address], 10/24/2022 22:12:57 10/25/19 23 10/24/2022 CBC WITH DIFFE RENTI AL/PL ATELE T monocytes 6.3 % 4.0-12 .0 Not Available [facility] [address] [facility] [address], [place], [address], 10/24/2022 22:12:57 10/25/19 23 10/24/2022 CBC WITH DIFFE RENTI AL/PL ATELE T eos 2 % 0-5 Not Available [facility] [address] [facility] [address], [place], [address], 10/24/2022 22:12:57 10/25/19 23 10/24/2022 CBC WITH DIFFE RENTI AL/PL ATELE T basos 0.3 % 0.0-1. 0 Not Available [facility] [address] [facility] [address], [place], [address], 10/24/2022 22:12:57 10/25/19 23 10/24/2022 CBC WITH DIFFE RENTI AL/PL ATELE T neutrophils (absolute) 1.5 K/uL 1.4-7. 0 Not Available [facility] [address] [facility] [address], [place], [address], 10/24/2022 22:12:57 10/25/19 23 10/24/2022 CBC WITH DIFFE RENTI AL/PL ATELE T lymphs (absolute) 1.5 K/uL 0.7-3. 1 Not Available [facility] [address] [facility] [address], [place], [address], 10/24/2022 22:12:57 10/25/19 23 10/24/2022 CBC WITH DIFFE RENTI AL/PL ATELE T monocytes(ab solute) 0.2 K/uL 0.1-0. 9 Not Available [facility] [address] [facility] [address], [place], [address], 10/24/2022 22:12:57 10/25/19 23 10/24/2022 CBC WITH DIFFE RENTI AL/PL ATELE T eos (absolute) 0.1 K/uL 0.0-0. 4 Not Available [facility] [address], [place], [address], 10/24/2022 22:12:57 10/25/19 23 10/24/2022 CBC WITH DIFFE RENTI AL/PL ATELE T baso (absolute) 0.0 K/uL 0.0-0. 3 Not Available [facility] [address], [place], [address], 10/24/2022 22:12:57 10/25/19 23 10/24/2022 CBC WITH DIFFE RENTI AL/PL ATELE T immature granulocytes 0.0 % Not Available [facility] [address], [place], [address], 10/24/2022 22:12:57 10/25/19 23 10/24/2022 CBC WITH DIFFE RENTI AL/PL ATELE T immature grans (abs) 0.0 K/uL Not Available [facility] [address], [place], [address], 10/24/2022 22:12:57 10/25/19 23 10/24/2022 CBC WITH DIFFE RENTI AL/PL ATELE T NRBC 0 % Not Available [facility] [address], [place], [address], 10/24/2022 22:12:57 10/25/19 23 10/25/2022 TSH RFX ON ABNOR MAL TO FREE T4 TSH 1.170 uIU/m L 0.450- 4.500 Not Available [facility] ([facility]) [address] [facility], [place], [address], 10/25/2022 08:51:02 10/25/19 23 10/25/2022 VITAM IN B12 AND FOLAT E vitamin B12 916 pg/mL 232-12 45 Not Available [facility] ([facility]) [address] [place], [address], 10/25/2022 08:51:03 10/25/19 23 10/25/2022 VITAM IN B12 AND FOLAT E folate (folic acid), serum 6.4 NG/mL >3.0 A serum folat e anton ntrat ion of less than 3.1 ng/mL is consi dered to repre sent clini alycia defic iency . Not Available [facility] ([facility]) [address] [place], [address], 10/25/2022 08:51:03 10/25/19 23 10/25/2022 IRON AND TIBC iron bind.cap.(TI BC) 316 ug/dL 250-45 0 Not Available [facility] ([facility]) [address] [place], [address], 10/25/2022 08:51:05 10/25/19 23 10/25/2022 IRON AND TIBC UIBC 249 ug/dL 131-42 5 Not Available [facility] ([facility]) [address] [place], [address], 10/25/2022 08:51:05 10/25/19 23 10/25/2022 IRON AND TIBC iron 67 ug/dL 27-159 Not Available [facility] ([facility]) [address] [place], [address], 10/25/2022 08:51:05 10/25/19 23 10/25/2022 IRON AND TIBC iron saturation 21 % 15-55 Not Available [facility] ([facility]) [address] [place], [address], 10/25/2022 08:51:05 10/25/19 23 10/25/2022 HEMOG LOBIN A1C hemoglobin A1C 5.6 % 4.8-5. 6 Predi abete s: 5.7 - 6.4 Diabe josué: >6.4 Glyce vito contr ol for adult s with diabe josué: <7.0 Not Available [facility] ([facility]) [address] [facility], [place], [address], 10/25/2022 08:51:06 10/25/19 23 10/25/2022 PROLA CTIN prolactin 13.1 NG/mL 4.8-23 .3 Not Available [facility] ([facility]) [address] [facility], [place], [address], 10/25/2022 08:51:07 10/25/19 23 10/25/2022 VITAM IN D, 25-HY DROXY vitamin D, 25-hydroxy 33.7 NG/mL 30.0-1 00.0 Vitam in D defic iency has been defin ed by the Insti tute of Medic ine and an Endoc rine Socie ty pract ice guide line as a level of serum 25-OH vitam in D less than 20 ng/mL (1,2) . The Endoc rine Socie ty went on to furth er defin e vitam in D insuf ficie ncy as a level betwe en 21 and 29 ng/mL (2). 1. IOM (Inst itute of Medic ine). 2009. Dieta ry refer ence intak es for calci um and D. Brit anderson [place]: The [facility] Press . 2. Miriam fuentes [place], Philip walker [place], Frandy off-F errar i PEREA, et al. Evalu ation , treat ment, and preve ntion of vitam in D defic iency : an Endoc rine Socie ty clini alycia pract ice guide line. JCEM. 2010; 96(7) :1911 -30. Not Available [facility] ([facility]) [address] [facility], [place], [address], 10/25/2022 08:51:08 10/25/19 23 10/24/2022 CARDI OVASC ULAR REPOR T interpretati on Note Suppl ement al repor t is avail able. Not Available [facility] [address], [place], [address], 10/24/2022 22:12:56 10/25/19 23 10/24/2022 CARDI OVASC ULAR REPOR T pdf . Not Available [facility] [address], [place], [address], 10/24/2022 22:12:56 07/18/19 24 07/19/2023 QUANT IFERO N-TB GOLD PLUS quantiferon incubation Incuba tion perfor med. Not Available [facility] ([facility]) [address] [facility], [place], [address], 07/20/2023 20:08:24 07/18/19 24 07/19/2023 QUANT IFERO N-TB GOLD PLUS quantiferon criteria Commen t Quant iFERO N-TB Gold Plus is a quali tativ e indir ect test for M tuber culos is infec tion (incl uding disea se) and is inten ded for use in conju nctio n with risk asses sment , radio graph y, and other medic al and diagn ostic evalu ation s. The Quant iFERO N-TB Gold Plus resul t is deter mined by subtr actin g the Nil value from eithe r TB antig en (Ag) value . The Mitog en tube serve s as a contr ol for the test. Not Available [facility] ([facility]) [address] [facility], [place], [address], 07/20/2023 20:08:24 07/18/19 24 07/20/2023 QUANT IFERO N-TB GOLD PLUS quantiferon- TB gold plus Negati ve negati ve No respo nse to M tuber culos is antig ens detec stephani. Infec tion with M tuber culos is is unlik amelie, but high risk indiv idual s shoul d be consi dered for addit ional testi ng (ATS/ IDSA/ CDC Clini alycia Pract ice Guide lines , 2017) . The refer ence range is an Antig en minus Nil resul t of <0.35 IU/mL . Chemi lumin escen ce immun oassa y metho dolog y Not Available [facility] ([facility]) [address] [place], [address], 07/20/2023 20:08:24 07/18/19 24 07/20/2023 QUANT IFERO N-TB GOLD PLUS quantiferon TB1 Ag value 0.13 IU/mL Not Available [facility] ([facility]) [address] [place], [address], 07/20/2023 20:08:24 07/18/19 24 07/20/2023 QUANT IFERO N-TB GOLD PLUS quantiferon TB2 Ag value 0.10 IU/mL Not Available [facility] ([facility]) [address] [place], [address], 07/20/2023 20:08:24 07/18/19 24 07/20/2023 QUANT IFERO N-TB GOLD PLUS quantiferon nil value 0.05 IU/mL Not Available [facility] ([facility]) [address] [place], [address], 07/20/2023 20:08:24 07/18/19 24 07/20/2023 QUANT IFERO N-TB GOLD PLUS quantiferon mitogen value >10.00 IU/mL Not Available [facility] ([facility]) [address] [place], [address], 07/20/2023 20:08:24 06/12/19 23 06/10/2022 XR, chest , 2 view No observ ation record ed. [facility] [address], [place], [address], 06/15/2022 16:45:46 07/16/19 23 07/15/2022 XR, hand, 3 or more view No observ ation record ed. [facility] [address], [place], [address], 07/17/2022 12:43:23 Result Notes None recorded. Problems Name Problem SNOMED Code Status Onset Date Resolution Date Notes Provider Name and Address Organization Details Recorded Time Vitamin D deficiency 37163677 Active 2017 ELLI BAH NP Attn: Kasey g,[address], [place], [address], [place] [facility] 3 12:42:46 Obesity 127880608 Active ELLI BAH NP Attn: Accountin g,[address], [place], [address], [place] [facility] 3 12:42:46 Furunculosis of skin AND/OR subcutaneous tissue Active ELLI BAH NP Attn: Kasey g,[address], [place], [address], [place] [facility] 3 12:42:46 Vaginitis 39448743 Active ELLI BAH NP Attn: Kasey g,[address], [place], [address], [place] [facility] 3 12:42:46 Dyspnea 675315770 Active ELLI BAH NP Attn: Sylwiarekha g,[address], [place], [address], [place] [facility] 3 12:42:46 Osteoarthritis 445608920 Active ELLI BAH NP Attn: Sylwiarekha g,[address], [place], [address], [place] [facility] 3 12:42:46 Anxiety 46037016 Active ELLI BAH NP Attn: Accountin g,[address], [place], [address], [place] [facility] 3 12:42:46 Sprain of ankle 71348050 Active ELLI BAH NP Attn: Sylwiain g,[address], [place], [address], [facility] 3 12:42:46 Vaginal discharge 098194306 Active ELLI BAH NP Attn: Kasey stafford,[address], [place], [address], [facility] 3 12:42:46 Problem Notes None recorded. Procedures Surgical History Date Name Laterality Status Provider Name and Address Organization Details Recorded Time 04/19/19 Total hysterectomy completed Teri Fernandez MD Attn: Accounting,[address] , [place], [address], [facility] 11/15/2022 10:06:21 Imaging Results Imaging Date Name Status LastModified by Organiz ation Details LastModified Time 06/10/2022 XR, chest, 2 view completed [facility] [address], [place], [address], 06/15/2022 16:45:46 07/15/2022 XR, hand, 3 or more view completed [facility] Jason [address], [place], [address], 07/17/2022 12:43:23 Procedure Notes None recorded. Medical Equipment None Reported. Allergies No known drug allergies Medications Name Sig Start Date Stop Date Status Note LastModified by Organization Details LastModified Time tetracyclin e 500 mg capsule 11/19 completed Not Available Not Available Not Available amoxicillin 500 mg capsule Take 2 capsules twice a day by oral route as directed for 14 days. 10/24 completed Not Available Not Available Not Available fluconazole 100 mg tablet 02/05 completed Not Available Not Available Not Available promethazin e-DM 6.25 mg-15 mg/5 mL oral syrup 02/05 completed Not Available Not Available Not Available paroxetine 10 mg tablet Take 1 tablet every day by oral route. 02/05 completed Not Available Not Available Not Available clindamycin HCl 300 mg capsule Take 1 capsule twice a day by oral route as directed for 7 days. 02/05 completed Not Available Not Available Not Available fluconazole 150 mg tablet Take 1 tablet by oral route. 10/24 completed Not Available Not Available Not Available clarithromy alicia 500 mg tablet Take 1 tablet every 12 hours by oral route as directed for 14 days. 10/24 completed Not Available Not Available Not Available hydrocodone 5 mg-acetamin ophen 325 mg tablet 09/03 completed Not Available Not Available Not Available fluconazole 200 mg tablet Take 1 tablet every day by oral route for 1 day. 02/05 completed Not Available Not Available Not Available metronidazo le 0.75 % (37.5 mg/5 gram) vaginal gel Insert 1 applicato rful every day by vaginal route at bedtime for 5 days. 02/05 completed Not Available Not Available Not Available Tubersol 5 tub. unit/0.1 mL intradermal injection solution Inject 0.1 mL by intraderm al route. 10/24 completed Not Available Not Available Not Available penicillin V potassium 500 mg tablet active Not Available Not Available Not Available metronidazo le 500 mg tablet TAKE 1 TABLET BY MOUTH TWICE DAILY WITH FOOD FOR 7 DAYS. DO NOT DRINK ALCOHOL WHILE TAKING THIS MEDICATIO N 10/24 completed Not Available Not Available Not Available phentermine 37.5 mg tablet TAKE 1/2 TABLET BY MOUTH TWICE DAILY 10/24 completed Not Available Not Available Not Available acetaminoph en 300 mg-codeine 30 mg tablet 02/05 completed Not Available Not Available Not Available clindamycin 1 %-benzoyl peroxide 5 % topical gel APPLY EXTERNALL Y TO FACE EVERY MORNING FOR ACNE 10/24 completed Not Available Not Available Not Available sulfamethox azole 800 mg-trimetho prim 160 mg tablet Take 1 tablet twice a day by oral route for 10 days. active Not Available Not Available No t Available peg-electro lyte solution 420 gram oral solution MIX AND TAKE DIRECTED BY OFFICE 07/17 completed Not Available Not Available Not Available omeprazole 40 mg capsule,del ayed release active Not Available Not Available Not Available doxycycline monohydrate 100 mg tablet 09/03 completed Not Available Not Available Not Available tramadol 50 mg tablet Take 1 tablet every 8 hours by oral route as needed. 10/24 completed Not Available Not Available Not Available ketorolac 10 mg tablet 09/03 completed Not Available Not Available Not Available adapalene 0.1 % topical cream APPLY EXTERNALL Y TO FACE EVERY NIGHT AT BEDTIME FOR ACNE 10/24 completed Not Available Not Available Not Available ciclopirox 8 % topical solution 11/19 completed Not Available Not Available Not Available benzonatate 100 mg capsule 09/03 completed Not Available Not Available Not Available doxycycline monohydrate 100 mg capsule take 1 tab daily for 30 days. 02/05 completed Not Available Not Available Not Available cephalexin 500 mg capsule 02/05 completed Not Available Not Available Not Available pantoprazol e 40 mg tablet,leonard yed release 10/24 completed Not Available Not Available Not Available triamcinolo ne acetonide 0.1 % topical ointment APPLY THIN LAYER TOPICALLY TO THE AFFECTED AREA TWICE DAILY active Not Available Not Available No t Available nystatin 100,000 unit/gram topical cream 10/24 completed Not Available Not Available Not Available clotrimazol e-betametha sone 1 %-0.05 % topical cream 11/19 completed Not Available Not Available Not Available promethazin e 25 mg tablet TAKE 1/2 TABLET BY MOUTH EVERY 6 HOURS NEEDED FOR NAUSEA 07/17 completed Not Available Not Available Not Available omeprazole 20 mg capsule,del ayed release Take 1 capsule twice a day by oral route as directed for 14 days. 09/03 completed Not Available Not Available Not Available ergocalcife rol (vitamin D2) 1,250 mcg (50,000 unit) capsule TAKE 1 CAPSULE BY MOUTH EVERY WEEK DIRECTED 11/19 completed Not Available Not Available Not Available clobetasol 0.05 % topical ointment 11/19 completed Not Available Not Available Not Available ibuprofen 600 mg tablet active Not Available Not Available Not Available benzoyl peroxide 5 % topical cleanser WASH THE AFFECTED AREA(S) BY TOPICAL ROUTE 2 TIMES PER DAY 09/03 completed Not Available Not Available Not Available oxycodone-a cetaminophe n 7.5 mg-325 mg tablet active Not Available Not Available Not Available methylpredn isolone 4 mg tablets in a dose pack Take 1 dose pk every day by oral route as directed. 09/03 completed Not Available Not Available Not Available norethindro ne (contracept cassie) 0.35 mg tablet 02/05 completed Not Available Not Available Not Available propranolol 20 mg tablet Take 1 tablet twice a day by oral route as needed for 30 days. 10/24 completed Not Available Not Available Not Available ketoconazol e 2 % topical cream APPLY TOPICALLY TO THE AFFECTED AREA EVERY DAY 10/24 completed Not Available Not Available Not Available ondansetron 4 mg disintegrat ing tablet active Not Available Not Available N ot Available doxycycline hyclate 100 mg tablet 02/05 completed Not Available Not Available Not Available naproxen 500 mg tablet Take 1 tablet twice a day by oral route as needed. active Not Available Not Available No t Available escitalopra m 10 mg tablet Take 1 tablet every day by oral route for 30 days. 10/24 completed Not Available Not Available Not Available 04/20 (28) 1 mg-20 mcg (21)/75 mg (7) tablet Take 1 tablet every day by oral route as directed. 09/17 completed Not Available Not Available Not Available hydrocodone 7.5 mg-acetamin ophen 325 mg/15 mL oral solution 11/19 completed Not Available Not Available Not Available erythromyci n with ethanol 2 % topical solution 09/03 completed Not Available Not Available Not Available nitrofurant oin monohydrate /macrocryst als 100 mg capsule Take 1 capsule every 12 hours by oral route for 5 days. 02/05 completed Not Available Not Available Not Available active Not Available Not Avai lable Not Available 28 mg iron-800 mcg tablet 02/05 completed Not Available Not Available Not Available Lomaira 8 mg tablet TAKE 1 TABLET BY MOUTH DAILY AFTER LUNCH active Not Available Not Available No t Available Vitals Date Recorded Oxygen saturation Oxygen saturation in Arterial blood by Pulse oximetry Heart rate Body height Body mass index (BMI) Body weight Systolic blood pressure Diastolic blood pressure Provider Name and Address Organization Details Last Updated DateTime 2 100 % 100 % 64 /min 172.72 cm 36.7 kg/m2 785422. 16 g 112 mm[Hg] 74 mm[Hg] Paula Russell [place] [facility] 2 11:42:42 Date Recorded Body height Body mass index (BMI) Body weight Body temperature Heart rate Systolic blood pressure Diastolic blood pressure Provider Name and Address Organization Details Last Updated DateTime 3 173.36 cm 36.7 kg/m2 532151. 95 g 97.9 [degF] 76 /min 114 mm[Hg] 75 mm[Hg] Court Will [place] [facility] 3 10:30:25 Date Recorded Body height Body mass index (BMI) Body weight Body temperature Heart rate Oxygen saturation Oxygen saturation in Arterial blood by Pulse oximetry Systolic blood pressure Diastolic blood pressure Provider Name and Address Organization Details Last Updated DateTime 3 173.36 cm 35.8 kg/m2 237219. 39 g 97.8 [degF] 82 /min 98 % 98 % 103 mm[Hg] 73 mm[Hg] Dilma Marshall MA [facility] 3 14:26:49 Date Recorded Body height Body mass index (BMI) Body weight Body temperature Heart rate Oxygen saturation Oxygen saturation in Arterial blood by Pulse oximetry Systolic blood pressure Diastolic blood pressure Provider Name and Address Organization Details Last Updated DateTime 3 173.36 cm 35.9 kg/m2 982734. 98 g 97.8 [degF] 77 /min 98 % 98 % 100 mm[Hg] 67 mm[Hg] Lida James MA [facility] 3 11:55:25 Date Recorded Body height Body mass index (BMI) Body weight Heart rate Oxygen saturation Oxygen saturation in Arterial blood by Pulse oximetry Systolic blood pressure Diastolic blood pressure Provider Name and Address Organization Details Last Updated DateTime 4 173.36 cm 39.1 kg/m2 433606. 42 g 73 /min 100 % 100 % 121 mm[Hg] 77 mm[Hg] Paula Russell MA [facility] 4 10:53:15 Social History Question Answer Notes LastModified by Organizat ion Details LastModified Time Tobacco Smoking Status Never Smoker Arlin hayward [facility] 03/30/2014 12:21:56 Do You Have An Advance Directive? No [email or web address] Information not available 08/06/2016 What Is Your Level Of Alcohol Consumption? Occasional [email or web address] Information not available 08/06/2016 What Is Your Level Of Caffeine Consumption? None Information not available 08/06/2016 How Much Tobacco Do You Chew? None [email or web address] Information not available 08/06/2016 Are You Currently Employed? No Information not available 08/06/2016 What Type Of Diet Are You Following? REGULAR [email or web address] Information not available 08/06/2016 Do You Or Have You Ever Used E-cigarettes Or Vape? Never Used Electronic Cigarettes Information not available 11/20/2019 Education 2 Year College [email or web address] Informatio n not available 09/17/2018 What Is Your Occupation? [employer] Information not available 09/17/2018 Hard Of Hearing Or Deaf In One Or Both Ears? No [email or web address] Information not available 08/06/2016 Legally Blind In One Or Both Eyes? No Information no t available 08/06/2016 Live Alone Or With Others? With Others [email or web address] Information not available 08/06/2016 What Was The Date Of Your Most Recent Tobacco Screening? 07/17/2023 Information not available 07/17/2023 How Many Children Do You Have? 2 [email or web address] Information not available 08/06/2016 Do You Use Protection During Sex? Usually Information not available 10/24/2022 What Is Your Relationship Status? Single Information not available 10/24/2022 Do You Use Your Seat Belt Or Car Seat Routinely? Yes Information not available 10/24/2022 Are You Sexually Active? Yes [email or web address] Information not available 08/06/2016 Are You Passively Exposed To Smoke? No [email or web address] Information no t available 08/06/2016 Do You Or Have You Ever Used Smokeless Tobacco? Never Used Smokeless Tobacco Information not available 11/20/2019 How Much Tobacco Do You Smoke? No [email or web address] Information not available 08/06/2016 General Stress Level Medium [email or web address] Information not available 08/06/2016 Do You Feel Stressed (tense, Restless, Nervous, Or Anxious, Or Unable To Sleep At Night)? [id number] Information not available 10/24/2022 Do You Or Have You Ever Used Any Other Forms Of Tobacco Or Nicotine? No Information not available 07/17/2023 Sex: Female Functional Status Question Answer Note LastModified by Organization D etails LastModified Time Are you able to care for yourself? Yes [email or web address] Information not available 08/06/2016 What is your exercise level? Moderate Information not available 10/24/2022 Mental Status None recorded. Family History Relationship Description Onset Age of this Age Resolved Age Notes LastModified by Organization Details LastModified Time Mother Hypertensive disorder [email or web address] available 2022 11:50:07 Medical History Condition Response Coronary Artery Disease N Other Y Atrial Fibrillation N High Blood Pressure N Thyroid Problems N Kidney or Bladder Problems N Depression N COPD N Blood Clots N GI Problems N Skin Problems N Eating Disorder N Anemia N Heart Attack (SC) N Diabetes N Anxiety Disorder Y Muscle, Joint, or Bone Problems Y Seizures/Epilepsy N Acid Reflux (GERD) N Cancer N Stroke N Allergies N Asthma N ADHD N Substance Abuse N High Cholesterol N Hepatitis N Liver Disease N Schizophrenia N Headaches N Osteoporosis N Heart Failure N Gynecological History Statement/Question Response Date of Last Pap Smear Age at Menarche 15 Current Control Method Hysterectom y Date of LMP 01/08/2018 Age at First Child 23 On BCP's at Conception? N Obstetrics History GPAL:G 3 P 0 0 0 0 Immunizations Vaccine Type Date Status Note Provider Nam e and Address Organization Details Recorded Time Hep A, adult 6 completed Not Available [facility] 04/18/2019 02:30:51 DTaP 8 completed Not Available [facility] 03/11/2020 03:06:38 DTaP 0 completed Not Available [facility] 03/11/2020 03:06:38 DTaP 1 completed Not Available [facility] 03/11/2020 03:06:38 Hib, unspecified formulation 0 completed Not Available [facility] 03/11/2020 03:06:38 Hep B, adolescent or pediatric 7 completed Not Available [facility] 03/11/2020 03:06:38 Hep B, adolescent or pediatric 9 completed Not Available [facility] 03/11/2020 03:06:38 Hep B, adolescent or pediatric 9 completed Not Available [facility] 03/11/2020 03:06:38 MMR 0 completed Not Available [facility] 03/11/2020 03:06:38 MMR 7 completed Not Available [facility] 03/11/2020 03:06:38 polio, unspecified formulation 8 completed ELLI BAH NP Attn: Accounting[address] , [place], [address], [facility] 10/24/2022 12:43:45 polio, unspecified formulation 0 completed Not Available [facility] 03/11/2020 03:06:38 polio, unspecified formulation 1 completed Not Available [facility] 03/11/2020 03:06:38 polio, unspecified formulation 7 completed Not Available [facility] 03/11/2020 03:06:38 Tdap 0 completed Not Available [facility] 03/11/2020 03:06:38 Td(adult) unspecified formulation 7 completed Not Available [facility] 03/11/2020 03:06:38 Hep A, ped/adol, 2 dose 5 completed Not Available [facility] 04/18/2019 02:30:50 Past Encounters Encounter ID Performer Location Encounter Start Date Encounter Closed Date Diagnosis/Indication Diagnosis SNOMED-CT Code Diagnosis ICD10 Code Diagnosis [id number] [address] [place] [address] 03/30/2014 12:04:31 03/30/2014 12:57:22 Vaginal discharge [id number] [facility] [address] [facility] [address] 08/09/2014 12:30:33 08/09/2014 13:05:13 Vaginal discharge [id number] [facility] [address] [place] [address] 08/27/2014 16:16:56 08/27/2014 17:40:41 Obesity 147214426 Furunculos is of skin AND/OR subcutaneous tissue 27774591 [id number] Antolin Gonzalez [facility] [address] [place] [address] 09/29/2014 16:11:25 09/30/2014 22:41:30 Vaginitis 71951150 [id number] Antolin Gonzalez [facility] ([facility]) [address] [place] [address] 11/29/2014 16:01:06 11/29/2014 21:06:58 Vaginitis 91547554 [id number] Serg Levin MD [facility] ([facility]) [address] [place] [address] 01/13/2015 16:49:47 01/18/2015 15:23:54 Vaginitis 27115050 N76.0 Obesity 742048193 E66.9 Dyspnea 528401613 R06.00 Osteoarthritis 931712083 M19.90 [id number] Nicanor Sifuentes PA-C [facility] [address] [facility] [address] [place] [address] 03/04/2015 17:10:50 03/04/2015 18:14:44 Vaginal discharge 595190181 N89.8 [id number] Asya Hummel MA [facility] ([facility]) [address] [place] [address] 03/07/2015 15:52:33 03/08/2015 09:49:38 Obesity 278896712 E66.9 Adult heal th examination 519045935 Z00.00 Anxiety 83305479 F41.9 [id number] RAN Mercado [facility] ([facility]) [address] [place] [address] 05/05/2015 11:01:06 05/20/2015 11:24:44 Sprain of ankle 33571680 S93.409A [id number] [facility] [address] [facility] [address] [place] [address] 06/29/2015 16:12:31 06/29/2015 17:19:42 Vaginal discharge 193580844 N89.8 Venereal d isease screening 290398194 Z11.3 Tuberculos is screening 806384333 Z11.1 [id number] [facility] ([facility]) [address] [place] [address] 11/04/2015 12:01:44 11/07/2015 14:26:34 Adult health examination 816529454 Z00.00 Active or passive immunization 150869424 Z23 Vaginitis 06979877 N76.0 [id number] Nicanor Sifuentes PA-C [facility] [address] [facility] [address] [place] [address], [place] [address] 12/22/2015 16:47:54 12/22/2015 17:14:16 Vaginal discharge 733452743 N89.8 [id number] Katherine Kearns [facility] [address] [place] [address], [place] [address] 03/02/2016 16:33:51 03/07/2016 11:45:23 Bacterial vaginosis 410081578 N76.0 Venereal d isease screening 455452024 Z11.3 rapid hiv testing while in pt. to be coorelated with labs Acute urin pili tract infection 501256060 N39.0 [id number] Serg Levin MD [facility] ([facility]) [address] [place] [address] 08/06/2016 14:00:45 08/08/2016 12:15:20 Obesity 500369463 E66.9 Acne 05934659 L70.9 [id number] Mindi Lujan [facility] [address] [place] [address] 04/05/2017 14:08:54 04/08/2017 12:06:20 History and physical examination, pre-employment 631576271 Z02.1 negative assessment . no restrictio ns indicated. pt reports all other requiremen ts performed at pcp office; which remain pending. [id number] Mindi Lujan [facility] [address] [place] [address] [address] [facility] [place] [address] 11/27/2017 12:12:49 11/28/2017 14:58:46 Venereal disease screening 097620280 Z11.3 labs pending will tailor treatment accordingl y upon receipt of labs. 1530 lab order for all given to pt to report to maurizio. 104. pt went to have labs drawn. pt declined hsv testing despite request in room. Vaginitis 19465333 N76.0 will treat for BV and vaginal candidiasi s according to s/s to provide relief at this time. declined condoms. [id number] RAN Mercado [facility] [address] [facility] [place] [address] 02/05/2018 10:58:23 02/12/2018 13:47:23 Neuropathy 615192986 G62.9 Pain in ri ght lower limb 119082944 M79.604 Morbid obesity 387769164 E66.01 [id number] RAN Mercado [facility] ([facility]) [address] [place] [facility] [place] [address] 06/25/2018 11:52:58 06/26/2018 09:04:41 Abdominal pain 62610337 R10.9 Snoring symptoms 2388723 00 R06.83 [id number] RAN Mercado [facility] ([facility]) [address] [place] [facility] [place] [address] 09/03/2018 15:53:35 09/04/2018 10:08:05 Morbid obesity 414387271 E66.01 [id number] RAN Mercado [facility] ([facility]) [address] [place] [facility] [place] [address] 09/17/2018 15:14:52 09/18/2018 12:26:59 Vitamin D deficiency 54174991 E55.9 Morbid obesity 550287407 E66.01 [id number] [facility]ina [facility] [address] [place] [facility] [place] [address] 11/20/2019 11:45:41 11/30/2019 14:08:58 Anxiety 61330310 F41.9 Referred patient to Chest pain 94725103 R07. 9 Vitamin D below reference range 364417270 E55.9 Depression screening 171 855838 Z13.31 [id number] Katherine Kearns [facility] ([facility]) [address] [place] [address] 01/04/2021 14:02:50 01/06/2021 07:21:18 Tuberculosis screening 363357681 Z11.1 ppd per ma per vo. pt to return on 01/06 for ppd reading and proof. [id number] Mindi Lujan [facility] ([facility]) [address] [place] [address] 07/26/2021 11:32:20 07/27/2021 08:47:20 History and physical examination, pre-employment 702328484 Z02.1 negative assessment . no restrictio ns indicated. denies asthma, heart disease and sickle cell. Tuberculos is screening 482130353 Z11.1 lab pending. will tailor treatment accordingl y upon receipt.in martin of 2- step ppd [id number] Mindi Lujan [facility] ([facility]) [address] [place] [address] 07/19/2022 10:21:33 07/25/2022 12:55:44 Tuberculosis screening 808252191 Z11.1 lab pending. will tailor treatment accordingl y upon receipt.fu as needed [id number] Mindi Lujan [facility] ([facility]) [address] [place] [address] 09/07/2022 14:15:49 09/11/2022 10:11:19 History and physical examination, school 95548943 Z02.0 school physical. no restrictio ns indicated. assessment negative. [id number] LELI BAH NP [facility] ([facility]) [address] [place] [address] 10/24/2022 11:43:58 10/30/2022 12:13:44 Mixed anxiety and depressive disorder 063952166 F41.8 Pt declining medication treatment today. Be physically active. Getting 30 minutes of exercise each day is good for your body and your mind. Begin slowly if it is hard for you to get started, If you already exercise, keep it up. Plan something pleasant for yourself every day. Include activities that you have enjoyed in the past. Get enough sleep. Eat a balanced diet. If you do not feel hungry, eat small snacks rather than large meals. Do not drink alcohol, use illegal drugs, or take medicines that your doctor has not prescribed for you. They may interfere with your treatment. Spend time with family and friends. It may help to speak openly about your depression with people you trust. Do not make major life decisions while you are depressed. Depression may change the way you think. You will be able to make better decisions after you feel better. Think positively . Challenge negative thoughts with statements such as I am hopeful ; Things will get better ; and I can ask for the help I need. Write down these statements and read them often, even if you don't believe them yet. Be patient with yourself. It took time for your depression to develop, and it will take time for your symptoms to improve. Do not take on too much or be too hard on yourself. Learn all you can about depression from written and online materials. Check out behavioral health classes to learn more about dealing with depression . Keep the numbers for these national suicide hotlines: 3-483-273- TALK () and 6-876-SUIC WENCESLAO (8-874-554 -0735). If you or someone you know talks about suicide or feeling hopeless, get help right away. Tachycardia 2885430 R00. 0 Vitamin D deficiency 347 02819 E55.9 Prediabetes 771816198 R7 3.03 Obesity 861554239 E66.9 Excessive sweating 54691 005 R61 Alopecia areata 96071626 L63.9 Fatigue 82469980 R53.83 [id number] Mindi Lujan, FARM MANAGEMENT TE[employer]ER-[facility] ([facility]) [address] [place] [address] 07/17/2023 10:39:36 07/19/2023 15:26:10 Tuberculosis screening 583258429 Z11.1 lab pending. will tailor treatment accordingl y upon receipt.fu as needed History an d physical examination, pre-employment 761664397 Z02.1 negative assessment . no restrictio ns indicated. denies asthma, heart disease and sickle cell. Obesity 164482426 E66.9 Health Concerns Section Related Observation LastModified by Organization Detai ls LastModified Time None Recorded Concern Status LastModified by Organization Details LastModified Time None Recorded Advance Directives Directive N: Payers Encounter Date Sequence Insurance Name Policy Number Policy Hernandez Covered Member ID Hernandez Member ID Guarantor Name 07/26/2021 1 [facility] ON OR AFTER 09/29/20 (MEDICAID REPLACEMENT - HMO) Vikas Echeverria [id number] Shereeraea Echeverria 07/19/2022 1 [facility] ON OR AFTER 09/29/20 (MEDICAID REPLACEMENT - HMO) Vikas Perdomoson [id number] Shocorrinaavia Echeverria 09/07/2022 1 [facility] ON OR AFTER 09/29/20 (MEDICAID REPLACEMENT - HMO) Vikas Echeverria [id number] Shoraea Echeverria 10/24/2022 1 [facility] ON OR AFTER 20 (MEDICAID REPLACEMENT - HMO) Vikas Echeverria [id number] Jimyavia Echeverria 07/17/2023 1 [place] [facility] Vikas Echeverria [id number] Vikas Echeverria Notes Date Note Type Note Provider Name and Address Organization Details Recorded Time 07/26/2021 text/html Pt presents to [facility] requesting an employment physical. She denies nausea, vomiting, fever, chills, diarrhea, rash, cough, CP, SOB, PLASENCIA, constipation and dysuria. NORMA De La Rosa Attn: Accounting[address] [place], [address], [facility] 07/26/2021 11:54:28 07/19/2022 text/html Pt presents to [facility] requesting an TB screening for employment purposes. Pt denies nausea, vomiting, fever, chills, rash, cough, CP, SOB, PLASENCIA, diarrhea, constipation and dysuria. NORMA De La Rosa Attn: Accounting,[address] [place], [address], [facility] 07/19/2022 11:05:23 09/07/2022 text/html Pt presents to [facility] requesting a school physical. She denies nausea, vomiting, fever, rash, cough, CP, SOB, PLASENCIA, chills, diarrhea, constipation and dysuria. NORMA De La Rosa Attn: Accounting,[address] [place], [address], [facility] 09/07/2022 15:10:06 10/24/2022 text/html The patient pres ents to the office for a routine office visit. She stated that she has been to the ER recently due to tachycardia. A heart attack was ruled out but recommendations were made for patient to see cardiology. The patient that she has been undergoing stress and anxiety x several years. She does endorse fatigue. She would also like a referral to a micro lab analyst for alopecia. She also deals with excessive sweating throughout the day. She denies additional issues or symptoms. ELLI BAH NP Attn: Accounting[address] [place], [address], [facility] 10/29/2022 07:57:50 07/17/2023 text/html Pt presents to [facility] requesting an employment physical. She denies nausea, vomiting, fever, chills, rash, cough, CP, SOB, PLASENCIA, diarrhea, constipation and dysuria. NORMA De La Rosa Attn: Accounting,[address] [place], [address], [facility] 07/18/2023 11:37:23 OBGyn Episode No OBEpisode recorded.
--- OUTSIDE RECORDS SUMMARY | 2024-05-22 20:50 | XMS_ITS | Referral Summary ---
Author Organization [facility] Address [address] [place] [address] Care Team Providers Care Electrical Mechanic Name Role Phone Popeye Bravo MD Primary Care Provider [phone] Encounters Date Type Department Care Team Description 05/08/2024 9:25 PM TILE SETTER SUPERVISOR - 05/08/2024 9:26 PM TILE SETTER SUPERVISOR Emergency [facility] Emergency Department [address] [place] [address] Discharge Disposition: Left without being seen from Last 3 Months Allergies No known active allergies Medications hydrOXYzine (VISTARIL) 25 mg capsule Take 1 capsule (25 mg total) by mouth 3 (three) times a day as needed for itching 30 capsule 11/01/2023 Active Social History Tobacco Use Types Packs/Day Years [...] on file Legal Sex Female 8:53 AM TILE SETTER SUPERVISOR Gender Identity Not on file Sexual Orientation Not on file Last Filed Vital Signs Vital Sign Reading Time Taken Comments Blood Pressure 126/67 05/08/2024 7:42 PM TILE SETTER SUPERVISOR Pulse 86 05/08/2024 7:42 PM TILE SETTER SUPERVISOR Temperature 36.7 C (98.1 F) 05/08/2024 7:42 PM TILE SETTER SUPERVISOR Respiratory Rate 16 05/08/2024 7:42 PM TILE SETTER SUPERVISOR Oxygen Saturation 100% 05/08/2024 7:42 PM TILE SETTER SUPERVISOR Inhaled Oxygen Concentration - - Weight 103.4 kg (228 lb) 05/08/2024 7:42 PM TILE SETTER SUPERVISOR Height 172.7 cm (5' 8 ) 05/08/2024 7:42 PM TILE SETTER SUPERVISOR Body Mass Index 34.67 05/08/2024 7:42 PM TILE SETTER SUPERVISOR Plan of Treatment Not on file Procedures Procedure Name Priority Date/Time Associated Diagnosis Comments ECG 12-LEAD STAT 05/08/2024 7:46 PM TILE SETTER SUPERVISOR from Last 3 Months Results * ECG 12 lead (05/08/2024 7:46 PM TILE SETTER SUPERVISOR) 05/08/2024 7:46 PM TILE SETTER SUPERVISOR Narrative [facility] - 05/09/2024 7:45 AM TILE SETTER SUPERVISOR Vent Rate: 84 bpm RR Interval: 714 msec [place] Interval: 143 msec QRS Duration: 101 msec QT Interval: 354 msec QTC Interval: 394 msec P-R-T [place]: 57 - 15 - 38 degrees IMPRESSION: SINUS RHYTHM NORMAL ECG Electronically Signed By: Keenan Minor MD [facility] us Adwoa Carrillo MD ECG ORDERABLES Final Result [facility] from Last 3 Months Insurance [facility] Member Subscriber Plan / Payer (Ef fective 2018-Present) Name:Vikas Echeverria Relation to Subscriber:Self Name:Vikas Echeverria Payer ID:[id number] (NAIC) Type: CORY Address: [facility] [address] Care Teams Electrical Mechanic Relationship Specialty Start Date End Date Popeye Bravo MD [address] [address] PCP - General 10/19/18
--- OUTSIDE RECORDS SUMMARY | 2024-05-22 20:50 | XMS_ITS | Encounter Summary ---
Author Organization [facility] Address [address] [place] [address] Care Team Providers Care Veneer Stock Layer Name Role Phone Popeye Bravo MD Primary Care Provider [phone] Encounter Details Date Type Department Care Team (Late st Contact Info) Description 11/14/2017 Hosp Visit [facility] Outpatient Therapy [place], [place] [id number] [place] [address] Social History Tobacco Use Types Packs/Day Years Used Date Smoking Tobacco: Never Assessed Comments Unknown Sex and Gender Information Value Date Recorded Sex Assigned at Not on file Legal Sex Female 7:48 PM CDT Gender Identity Not on file Sexual Orientation Not on file documented as of this encounter Progress Notes * Nuvia Wheeler PT - 11/14/2017 10:43 AM CDT Vikas Echeverria 1985 Patient did not arrive for today's appointment and did not contact clinic to cancel. _x_ A voicemail was left for patient requesting patient contact clinic to reschedule. Message also stated that per our no call no show policy she would need to call to schedule further appointments. Nuvia Wheeler PT, WCS 11/14/17 10:44 AM documented in this encounter Plan of Treatment Not on file documented as of this encounter Visit Diagnoses Not on filedocumented in this encounter Care Teams Veneer Stock Layer Relationship Specialty Start Date End Date Popeye Bravo MD [address] [address] PCP - General 05/15/16 documented as of this encounter
--- OUTSIDE RECORDS SUMMARY | 2024-05-22 20:50 | XMS_ITS | Encounter Summary ---
Author Organization [facility] Address [address] [place] [address] Care Team Providers Care Clinical Rehabilitation Liaison Name Role Phone Popeye Bravo MD Primary Care Provider [phone] Encounter Details Date Type Department Care Team (Late st Contact Info) Description 11/14/2017 Therapy Plan [facility] [place] [address] Nuvia Wheeler, [place] [address] Social History Tobacco Use Types Packs/Day Years [...] on filedocumented in this encounter Care Teams Clinical Rehabilitation Liaison Relationship Specialty Start Date End Date Popeye Bravo MD [address] [address] PCP - General 05/15/16 documented as of this encounter
--- OUTSIDE RECORDS SUMMARY | 2024-05-22 20:50 | XMS_ITS | Clinical Summary ---
Author Organization [facility] Address [address] [place] [address] Care Team Providers Care Homemaking Rehabilitation Consultant Name Role Phone Popeye Bravo MD Primary Care Provider [phone] Allergies No known active allergies Medications diclofenac EC 75 MG tablet Take 1 tablet (75 mg total) by mouth 2 (two) times daily as needed (Pain. Please take with meals). 30 tablet 03/11/2020 Active Active Problems Problem Noted Date Diagnosed Date Uterine prolapse 04/19/2018 H/O vaginal hysterectomy 04/18/2018 Family History Medical History Relation Comments Hypertension Mother Kidney Disease Mother grave's dis Mother Relation Status Comments Daughter 1 Alive Daughter 2 Alive Daughter 3 Alive Father Alive Mother Alive Social History Tobacco Use Types Packs/Day Years Used Date Smoking Tobacco: Never Smokeless Tobacco: Never Alcohol Use Standard Drinks/Week Comments Yes 0 (1 standard drink = 0.6 oz pur e alcohol) occasionally Comments No Sex and Gender Information Value Date Recorded Sex Assigned at Not on file Legal Sex Female 7:48 PM CDT Gender Identity Not on file Sexual Orientation Not on file Last Filed Vital Signs Vital Sign Reading Time Taken Comments Blood Pressure 106/75 03/11/2020 1:30 AM CELL FEED DEPARTMENT SUPERVISOR Pulse 81 03/11/2020 1:30 AM CELL FEED DEPARTMENT SUPERVISOR Temperature 36.6 C (97.9 F) 03/10/2020 8:21 PM CELL FEED DEPARTMENT SUPERVISOR Respiratory Rate 18 03/11/2020 1:30 AM CELL FEED DEPARTMENT SUPERVISOR Oxygen Saturation 95% 03/11/2020 1:30 AM CELL FEED DEPARTMENT SUPERVISOR Inhaled Oxygen Concentration - - Weight 97.7 kg (215 lb 6.2 oz) 03/10/2020 8:21 P M CELL FEED DEPARTMENT SUPERVISOR Height 172.7 cm (5' 8 ) 03/10/2020 8:21 PM CELL FEED DEPARTMENT SUPERVISOR Body Mass Index 32.75 03/10/2020 8:21 PM CELL FEED DEPARTMENT SUPERVISOR Plan of Treatment Health Maintenance Due Date Last Done Comments Annual Physical 1990 Hepatitis C 2005 Hepatitis B Vaccines (1 of 3 - 19+ 3-dose series) 2006 COVID-19 Vaccine ( season) 2023 Influenza Adult (#1) 2023 01/11/2018 DTaP, Tdap and Td Vaccines (5 - Td or Tdap) 03/04/2030 03/04/2020, 12/29/1997, 11/27/1990, Additional history exists HPV Vaccines Aged Out No longer eligi ble based on patient's age to complete this topic Meningococcal B Vaccine Aged Out No l onger eligible based on patient's age to complete this topic Meningococcal Vaccine Aged Out No joan elisa eligible based on patient's age to complete this topic Pneumococcal Vaccine: Pediatrics (0 to 5 Years) and At-Risk Patients (6 to 64 Years) Aged Out No longer eligible based on patient's age to complete this topic RSV Immunizations Under 20 Months Aged Out No longer eligible based on patient's age to complete this topic Insurance [facility] AET[employer] Advance Directives * Full Code (Latest Code Status on File) Date Activated Date Inactivated Comments 04/18/2018 4:12 PM 04/19/2018 4:49 PM Care Teams Homemaking Rehabilitation Consultant Relationship Specialty Start Date End Date Popeye Bravo MD [address] [address] PCP - General 05/15/16
[2024-05-22 21:00] VITALS: BP 122/71; PULSE 99; RESP 20; TEMP 36.6; O2SAT 100
--- NOTE | 2024-05-22 22:39 | ECG_ITS ---
Test Date: 2024-05-22 22:46:02 Measurements Intervals [place] Rate: 80 P: 65 [place]: 159 QRS: 20 QRSD: 96 T: 37 QT: 358 QTc: 415 Interpretive Statements SINUS RHYTHM BASELINE ARTIFACT- I, III, AVR, AVL NORMAL ECG No previous ECG available for comparison Electronically Signed On 05-23-2024 06:39:11 BACTERIOLOGIST SOIL by Saedi Vail D.O.
[2024-05-23 01:03] VITALS: BP 112/57; PULSE 77; RESP 17; TEMP 36.4; O2SAT 100
[2024-05-23 01:22] LABS: Basophils Percent Auto 0.4 % (0.2-1.2); Eosinophils Absolute Auto 0.1 K/mm3 (0-0.3); Eosinophils Percent Auto 1.6 % (0-4.4); Hematocrit 38.5 % (37.0-47.0); Hemoglobin 12.9 g/dL (12.0-15.0); Immature Granulocyte Absolute 0.01 K/mm3 (0.00-0.031); Immature Granulocyte Percent A 0.2 % (0-0.5); Lymphocytes Absolute Auto 1.97 K/mm3 (0.9-3.2); Lymphocytes Percent Auto 35.2 % (18.3-44.2); Mean Corpuscular HGB Conc 33.5 g/dl (32-36); Mean Corpuscular Hemoglobin 29.8 pg (26-34); Mean Corpuscular Volume 88.9 fl (80-100); Mean Platelet Volume 10.6 fl (7.4-10.4); Monocytes Absolute Auto 0.5 K/mm3 (0.1-0.6); Monocytes Percent Auto 8.4 % (2.6-8.5); Neutrophils Percent Auto 54.2 % (45.5-73.1); Platelet Count Result 190 k/mm3 (150-375); Red Blood Count 4.33 M/mm3 (4.2-5.4); Red Cell Distribution Width 13.1 % (11.5-14.5); White Blood Count 5.6 K/mm3 (4.5-10.0)
[2024-05-23 01:26] LABS: Alanine Aminotransferase 12 U/L (6-35); Alkaline Phosphatase 66 U/L (38-126); Anion Gap 8 mmol/L (4-12); Aspartate Amino Transferase 18 U/L (14-36); Bilirubin,Total 0.6 mg/dL (0.2-1.3); Blood Urea Nitrogen 10 mg/dL (7-17); Calcium 9.2 mg/dL (8.4-10.2); Carbon Dioxide 26 mmol/L (22-30); Chloride 104 mmol/L (98-107); Estimated CRCL calculation 133 ml/min; Estimated Glomerular Filt Rate > 60; Glucose 87 mg/dL (65-110); Lipase 238 U/L (23-300); Magnesium 1.8 mg/dL (1.6-2.3); Potassium 3.7 mmol/L (3.4-5.0); Sodium 138 mmol/L (137-145)
[2024-05-23 01:43] LABS: SPREG INTERNAL CONTROL Positive; Serum Qual hCG Negative
--- OUTSIDE RECORDS SUMMARY | 2024-05-23 01:45 | XMS_ITS | Clinical Summary ---
Author Organization [facility] Address [address] [place] [address] Care Team Providers Care Tractor Drill Operator Name Role Phone Stephen Rock MD Primary Care Provider [phone] Source Comments [facility],non-owned Affiliates and Associated Physician Practices is amultiple site organization consisting of ambulatory clinics and hospital sitesin [place], [place], [place] and [place]. This disclosure is being madepursuant to the Care Everywhere program and may not contain all information available regarding this patient. Last updated 17.[facility] Allergies No known active allergies Medications * Be aware that medications may not be up to date on this document. Alwaysverify current medications with the patient. Medication Sig Dispensed Refills Start Date End Date Status vitamin D, ergocalciferol, (DRISDOL) 39223 UNITS capsule TK 1 C PO ONCE A WEEK UTD. 1 02/10/2018 Active erythromycin (ERYDERM) 2 % solutionIndications: Bacterial folliculitis Apply to affected area on inner thigh daily. 30 days supply. 60 mL 4 03/19/2018 Active Additional Information Patient not taking.Reported on 03/04/2020 doxycycline monohydrate 100 MG tabletIndications:Ac ne Vulgaris Take 1 tablet by mouth 2 times daily Reasons: Common Acne 60 tablet 1 03/21/2018 Active Additional Information Patient not taking.Reported on 03/04/2020 clobetasol (TEMOVATE) 0.05 % ointmentIndications: Other cicatricial alopecia Apply to areas of hair loss on scalp daily. 30 days supply. 45 g 1 03/21/2018 Active Additional Information Patient not taking.Reported on 03/04/2020 Active Problems Problem Noted Date Diagnosed Date JEM on CPAP 11/20/2018 01/08/2023 Uterine prolapse 04/19/2018 01/08/2023 H/O vaginal hysterectomy 04/18/2018 023 S/P laparoscopic sleeve gastrectomy 04/01/2018 Abnormal genetic test during 7 Acquired acanthosis nigricans 12/06/2016 Overview (01/08/2023): Acanthosis nigricans; Progress: Stable Added By: Sergey Duque Add to Current Problems: NO ProblemStatus: Resolve Acanthosis nigricans; Location: None Progress: Stable Added By: Sergey Duque Add to Current Problems: YES ProblemStatus: Current Dysthymia 12/06/2016 01/08/2023 Overview (01/08/2023): Other malaise; Progress: Stable Added By: Sergey Duque Add to Current Problems: YES ProblemStatus: Current Pain of breast 11/22/2016 01/08/2023 Overview (01/08/2023): Mastodynia; Progress: Stable Added By: Antionette Reese Add to Current Problems: NO ProblemStatus: Resolve Immunizations Name Administration Dates Next Due INFLUENZA VACCINE, TRIV. (AF LURIA, FLUZONE TRIVALENT; 6MO+) (IIV3) 01/11/2018 TDAP (7yrs+) 03/04/2020 Family History Medical History Relation Name Comments Asthma Neg Hx CVA Neg Hx Cancer - Breast Neg Hx Cancer - Other Neg Hx Cancer - Skin, Melanoma Neg Hx Cancer - Skin, Non Melanoma Neg Hx Eczema Neg Hx Hemophilia Neg Hx Psoriasis Neg Hx Social History Tobacco Use Types Packs/Day Years Used Date Smoking Tobacco: Never Smokeless Tobacco: Never Sex and Gender Information Value Date Recorded Sex Assigned at Not on file Gender Identity Not on file Sexual Orientation Not on file Last Filed Vital Signs Vital Sign Reading Time Taken Comments Blood Pressure 122/70 03/04/2020 4:49 PM BATH TESTER Pulse 78 03/04/2020 4:49 PM BATH TESTER Temperature 36.7 C (98 F) 03/04/2020 4:49 PM BATH TESTER Respiratory Rate 16 03/04/2020 4:49 PM BATH TESTER Oxygen Saturation 100% 03/04/2020 4:49 PM BATH TESTER Inhaled Oxygen Concentration - - Weight 97.5 kg (215 lb) 03/04/2020 4:49 PM BATH TESTER Height 172.7 cm (5' 8 ) 03/04/2020 4:49 PM BATH TESTER Body Mass Index 32.69 03/04/2020 4:49 PM BATH TESTER Plan of Treatment Health Maintenance Due Date Last Done Comments PAP SMEAR 1985 HIV SCREENING 2002 HEPATITIS C SCREENING 05/11/2005 HEPATITIS B VACCINE (1 of - 19+ 3-dose series) 2006 COVID-19 VACCINE (2023-2 5 season) 2023 07/14/2021, 05/23/2021 INFLUENZA VACCINE (#1) 2023 01/11/2018 DEPRESSION SCREENING 04/01/2024 DTAP/TDAP/TD VACCINES (2 - T d or Tdap) 03/04/2030 03/04/2020 ZOSTER VACCINE (1 of 2) 2037 HIB VACCINE Aged Out No longer eligi ble based on patient's age to complete this topic HPV VACCINE Aged Out No longer eligi ble based on patient's age to complete this topic MENINGOCOCCAL (Group B) VACCINE Aged Out No longer eligible b ased on patient's age to complete this topic MENINGOCOCCAL VACCINE Aged Out No joan elisa eligible based on patient's age to complete this topic PNEUMOCOCCAL VACCINE Aged Out No long er eligible based on patient's age to complete this topic Care Teams Tractor Drill Operator Relationship Specialty Start Date End Date Stephen Rock MD [address] [place] [address] PCP - General 12/25/17
--- OUTSIDE RECORDS SUMMARY | 2024-05-23 01:45 | XMS_ITS | Encounter Summary ---
Author Organization [facility] Address [address] [place] [address] Care Team Providers Care Account Group Supervisor Name Role Phone Popeye Bravo MD Primary Care Provider [phone] Encounter Details Date Type Department Care Team (Late st Contact Info) Description 11/10/2018 Abstract [facility] Operating Room [address] [address] Michael Palomares MD [address] [place] [address] Social History Tobacco Use Types Packs/Day Years Used Date Smoking Tobacco: Former Cigarettes Smokeless Tobacco: Never Alcohol Use Standard Drinks/Week Comments Yes 0 (1 standard drink = 0.6 oz pur e alcohol) social use Comments Unknown Sex and Gender Information Value Date Recorded Sex Assigned at Not on file Legal Sex Female 6:07 AM ORGANIC LAB WORKER Gender Identity Not on file Sexual Orientation Not on file documented as of this encounter Plan of Treatment Not on file documented as of this encounter Visit Diagnoses Not on filedocumented in this encounter Care Teams Account Group Supervisor Relationship Specialty Start Date End Date Popeye Bravo MD [address] [place] [address] PCP - General Family Practice 11/07/18 documented as of this encounter
--- OUTSIDE RECORDS SUMMARY | 2024-05-23 01:45 | XMS_ITS | Referral Summary ---
Author Organization [facility] Address [address] [place] [address] Care Team Providers Care Space And Missile Operations Spacelift Name Role Phone Stephen Rock MD Primary Care Provider [phone] Source Comments [facility],non-owned Affiliates and Associated Physician Practices is amultiple site organization consisting of ambulatory clinics and hospital sitesin [place], [place], [place] and [place]. This disclosure is being madepursuant to the Care Everywhere program and may not contain all information available regarding this patient. Last updated 17.[facility] Allergies No known active allergies Medications * Be aware that medications may not be up to date on this document. Alwaysverify current medications with the patient. Medication Sig Dispensed Refills Start Date End Date Status vitamin D, ergocalciferol, (DRISDOL) 60219 UNITS capsule TK 1 C PO ONCE [...] TRIVALENT; 6MO+) (IIV3) 01/11/2018 TDAP (7yrs+) 03/04/2020 Social History Tobacco Use Types Packs/Day Years Used Date Smoking Tobacco: Never Smokeless Tobacco: Never Sex and Gender Information Value Date Recorded Sex Assigned at Not on file Gender Identity Not on file Sexual Orientation Not on file Last Filed Vital Signs Vital Sign Reading Time Taken Comments Blood Pressure 122/70 03/04/2020 4:49 PM RECRUITMENT OFFICER Pulse 78 03/04/2020 4:49 PM RECRUITMENT OFFICER Temperature 36.7 C (98 F) 03/04/2020 4:49 PM RECRUITMENT OFFICER Respiratory Rate 16 03/04/2020 4:49 PM RECRUITMENT OFFICER Oxygen Saturation 100% 03/04/2020 4:49 PM RECRUITMENT OFFICER Inhaled Oxygen Concentration - - Weight 97.5 kg (215 lb) 03/04/2020 4:49 PM RECRUITMENT OFFICER Height 172.7 cm (5' 8 ) 03/04/2020 4:49 PM RECRUITMENT OFFICER Body Mass Index 32.69 03/04/2020 4:49 PM RECRUITMENT OFFICER Plan of Treatment Not on file Care Teams Space And Missile Operations Spacelift Relationship Specialty Start Date End Date Stephen Rock MD [address] [place] [id number] PCP - General 12/25/17
--- OUTSIDE RECORDS SUMMARY | 2024-05-23 01:45 | XMS_ITS | Patient Health Summary ---
Author Organization [facility] Address [address] [place] [address] Care Team Providers Care Biologist Aide Name Role Phone Stephen Rock MD Primary Care Provider [phone] Note from [facility] [place],non-owned Affiliates and Associated Physician Practices is amultiple site organization consisting of ambulatory clinics and hospital sitesin [place], [place], [place] and [place]. This disclosure is being madepursuant to the Care Everywhere program and may not contain all information available regarding this patient. Last updated 17.[facility] Allergies No known active allergies Medications * Be aware that medications may not be up to date on this document. Alwaysverify current medications with the patient. * vitamin D, ergocalciferol, (DRISDOL) 76967 UNITS capsule(Started 02/10/2018) TK 1 C PO ONCE A WEEK UTD. 1 refill left * erythromycin (ERYDERM) 2 % solution(Started 03/19/2018) Apply to affected area on inner thigh daily. 30 days supply. 4 refills remaining * doxycycline monohydrate 100 MG tablet(Started 03/21/2018) Take 1 tablet by mouth 2 times daily Reasons: Common Acne 1 refill remaining * clobetasol (TEMOVATE) 0.05 % ointment(Started 03/21/2018) Apply to areas of hair loss on scalp daily. 30 days supply. 1 refill remaining Active Problems Problem Noted Date Diagnosed Date JEM on CPAP 11/20/2018 01/08/2023 Uterine prolapse 04/19/2018 01/08/2023 H/O vaginal hysterectomy 04/18/2018 023 S/P laparoscopic sleeve gastrectomy 04/01/2018 Abnormal genetic test during 7 Acquired acanthosis nigricans 12/06/2016 Dysthymia 12/06/2016 01/08/2023 Pain of breast 11/22/2016 01/08/2023 Immunizations * INFLUENZA VACCINE, TRIV. (AFLURIA, FLUZONE TRIVALENT; 6MO+) (IIV3)(Given 01/11/2018) * TDAP (7yrs+)(Given 03/04/2020) Social History Tobacco Use Types Packs/Day Years Used Date Smoking Tobacco: Never Smokeless Tobacco: Never Sex and Gender Information Value Date Recorded Sex Assigned at Not on file Gender Identity Not on file Sexual Orientation Not on file Last Filed Vital Signs Vital Sign Reading Time Taken Comments Blood Pressure 122/70 03/04/2020 4:49 PM BOWLING ALLEY FLOORS INSTALLER Pulse 78 03/04/2020 4:49 PM BOWLING ALLEY FLOORS INSTALLER Temperature 36.7 C (98 F) 03/04/2020 4:49 PM BOWLING ALLEY FLOORS INSTALLER Respiratory Rate 16 03/04/2020 4:49 PM BOWLING ALLEY FLOORS INSTALLER Oxygen Saturation 100% 03/04/2020 4:49 PM BOWLING ALLEY FLOORS INSTALLER Inhaled Oxygen Concentration - - Weight 97.5 kg (215 lb) 03/04/2020 4:49 PM BOWLING ALLEY FLOORS INSTALLER Height 172.7 cm (5' 8 ) 03/04/2020 4:49 PM BOWLING ALLEY FLOORS INSTALLER Body Mass Index 32.69 03/04/2020 4:49 PM BOWLING ALLEY FLOORS INSTALLER Procedures * AL BIOPSY OF SKIN LESION(Performed 03/19/2018) Performed for Rash and other nonspecific skin eruption * DERMATOPATHOLOGY(Performed 03/19/2018) Performed for Rash and other nonspecific skin eruption * SONOGRAM - COMPLETE(Performed 04/23/2017) Performed for Encounter for anatomic survey (HCC), Abnormal genetic test during * SONOGRAM - COMPLETE(Performed 03/26/2017) Performed for Encounter for ultrasound to check growth ([facility]), Encounter for anatomic survey ([facility]), Abnormal genetic test during * SONOGRAM - COMPLETE(Performed 03/06/2017) Performed for Abnormal genetic test during * CHROMOSOME ANALYSIS AMNIOTIC FLUID(Performed 08/25/2008) Performed for Unspecified Complication of , Antepartum ([facility]) * CHROMOSOME ANALYSIS BLOOD FISH PANEL(Performed 08/25/2008) Performed for Unspecified Complication of , Antepartum (HCC) Results * AL BIOPSY OF SKIN LESION (03/19/2018 2:50 PM BOWLING ALLEY FLOORS INSTALLER) Narrative Jade Francis MD - 03/19/2018 2:50 PM BOWLING ALLEY FLOORS INSTALLER Fawad Keller MD 03/19/2018 12:02 PM Risks, benefits and alternatives to punch biopsy were discussed with the patient. Pt understands the possibility for the following: Bleeding, infection, scar, the possibility of non-diagnostic reading and the potential need for further testing or treatment, including surgical. Stated clearly the size of the specimen and the need to obtain adequate tissue for the most accurate path reading. Pt accepts all of above, verbal consent was obtained. Location: Frontal scalp Skin prep: Alcohol Anesthesia: 1% lidocaine with epinephrine Punch: 4 mm Suture: 4-0 nylon x 2 simple interrupted sutures Dressing and wound care discussed Jade Francis MD PROCEDURE/MINOR ADORNO RGICAL ORDERABLES * DERMATOPATHOLOGY (03/19/2018 12:00 AM BOWLING ALLEY FLOORS INSTALLER) Case Report Dermatopathology Report Case: [id number] Authorizing Provider: Jade Francis MD Collected: 03/19/2018 12:00 AM Ordering Location: [facility] Received: 03/19/2018 02:07 PM Dermatology Pathologist: Errol Ambrocio MD Specimen: Skin, frontal scalp 3:42 PM [facility] Final Diagnosis Specimen A. 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 The specimen consists of a punch biopsy measuring 4x4x5 mm. Jar 0. 3:42 PM [facility] Microscopic Description Specimen A. SKIN, frontal scalp: The specimen is processed per alopecia protocol, and initially sectioned horizontally for multiple levels, then flipped 90 degrees and recut for vertical sections. Sections show a decreased number of terminal hair follicles with prominent fibrosis and minimal inflammation. There is premature desquamation of the inner root sheath. There is a mild and superficial perifollicular lymphoplasmacytic inflammatory infiltrate without evidence of interface dermatitis. Original and deeper sections were reviewed. 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 Clinicopathologic correlation is recommended. 8 3:42 PM [facility] Disclaimer An external and internal positive and negative controls are appropriate for the histochemical, immunohistochemical and immunofluorescence stain(s) in this case (if any), except where stated explicitly. The performance characteristics of the stain(s) cited in this report were developed and its performance characteristic determined by the Dermatopathology Laboratory at [facility]. These tests need not be, and therefore are not, approved by the [place] Food and Drug Administration. The tests are used for clinical purposes. Billing Codes Specimen Charges Stain Charges 33148 1 8 3:42 PM [facility] Embedded Images 8 3:42 PM [facility] Pathology/Cytolog y TISSUE SPECIMEN FROM SKIN / Unknown 03/19/2018 03/19/2018 2:07 PM BOWLING ALLEY FLOORS INSTALLER Jade Francis MD LAB - PATHOLOGY/CY TOLOGY ORDERABLES DERMATOPATHOLOGY LABORATORY [facility] - Department of Dermatology [address] [place] [address] 5th Floor Lab B [address] [phone] * SONOGRAM - COMPLETE (04/23/2017 9:33 AM BOWLING ALLEY FLOORS INSTALLER) Only the most recent of3 resultswithin the time period is included. Anatomical Region Laterality Modality Other 04/23/2017 9:33 AM BOWLING ALLEY FLOORS INSTALLER Narrative 04/23/2017 1:32 PM [facility] PHONE: FAX: Pat. Name: VIKAS SIMMS Pat. No: [id number] Study Date: 04/23/2017 9:33am , Age: 02 1985, 31 Pregnancies: 4, Para 2, Ab 1 Height: 68 in Weight: 281 lb LMP: 10/18/2016 GA by LMP: 26w5d GA by Base: 26w0d DONTA: 07/30/2017 GA by US: 25w5d DONTA: 08/01/2017 GA Selected: 26w0d (From [facility]) DONTA: 07/30/2017 Referring MD: Dulce Shipley MD Hostess: Arabella Contreras RDMS CPT4: 45797 BMI: 42.72 Hist/Ind: Incomplete anatomic survey Elevated MSAFP (3.00 MoM) Elevated hCG (2.95 MoM) Class III obesity MEASUREMENTS & AGE GROWTH EVALUATION Measurement GA Range Srce %for GA Ratios ----- ---- ------- BPD 6.2 cm 25w1d (66b8q-13r3t) Hadl BPD 15% FL/BPD 0.79 (0.71 - 0.87) HC 22.9 cm 24w6d (53m4g-15h8d) Hadl HC 4% FL/AC 0.23 (0.20 - 0.24) AC 21.2 cm 25w5d (75r9i-00z0f) Hadl AC 32% HC/AC 1.08 (1.01 - 1.20) FL 4.9 cm 26w3d (96a1t-30i8w) Hadl FL 47% CI 0.77 (0.70 - 0.86) HL 4.5 cm 26w4d (07j2p-15i8c) Armin HL 59% GA for sonogram 25w5d (53g9h-35k9o) Weight Estimate: based on (HL,BPD,HC,AC,FL) Avg Weight: 859 gm (733-984gm) Hadloc : 1lbs, 14oz Normal: 913 gm (685-1141gm) Hadlo Wt% 32% for 26w0d Heart Rate: 153 bpm Amniotic Fluid Index: 05.3cm (Deepest Pocket) EVAL, PLACENTA Presentation: cephalic Umbilical Cord: 3 Vessels Placenta: anterior Heart Rate: 153 bpm Amniotic Fluid Volume: normal Anatomy!Normal!Abnormal!Suboptimal!Comments Cranium ! x ! ! ! Spine ! x ! ! ! 4 Chamber Hea! x ! ! ! Stomach ! x ! ! ! Bowel ! x ! ! ! Kidneys ! x ! ! ! Bladder ! x ! ! ! 3 Vessel Cord! x ! ! ! CLINICAL SUMMARY Study Number: 3 A Single fetus is identified in cephalic presentation. The measurements today are consistent with appropriate growth compared to previous study growth. The DONTA selected is based on a prior ultrasound. The estimated weight percentile is 32%. The amniotic fluid volume is normal. The placenta is anterior. The patient was advised that ultrasound does not allow detection of all structural or chromosome abnormalities. IMPRESSION: Single cephalic IUP at 26w0d normal Amniotic fluid volume Appropriate interval growth Reassuring status Placental Location: anterior No major malformations are seen today within the limitations of ultrasound Completed anatomy survey RECOMMEND: Follow up ultrasound every 4 weeks for growth. Thank you for allowing us the opportunity to care for your patient. Rambo Gong MD <Electronic Signature> 04/23/2017 01:32pm Dulce Shipley MD [facility] ORDERABLES * CHROMOSOME ANALYSIS FISH PANEL (08/25/2008 11:00 AM CDT) FISH See Charted Report [facility] Comment FISH: Amniotic Fluid [facility] AMNIOTIC FLUID SPECIMEN / Unknown 08/25/2008 11:00 AM CDT Narrative Resulting Agency Comment [facility] () [address] [place] [address] Stephen Rock MD LAB - PATHOLOGY/CY TOLOGY ORDERABLES Performing Organization Address City/[facility] Co de Phone Number [facility] [address] [place] [phone] * CHROMOSOME ANALYSIS AMNIO PANEL (08/25/2008 11:00 AM CDT) Chromosome Analysis Amniotic Fluid See Charted Report [facility] Comment Chromosome Amniotic Fluid: Amniotic Fluid [facility] AMNIOTIC FLUID SPECIMEN / Unknown 08/25/2008 11:00 AM CDT Narrative Resulting Agency Comment Performed By [facility] () [address] [place] [address] Stephen Rock MD LAB - PATHOLOGY/CY TOLOGY ORDERABLES [facility] [address] [place] [address] Care Teams Biologist Aide Relationship Specialty Start Date End Date Stephen Rock MD [address] [place] [address] PCP - General 12/25/17
--- OUTSIDE RECORDS SUMMARY | 2024-05-23 01:45 | XMS_ITS | Clinical Summary ---
Author Organization [facility] Address [address] [place] [address] Phone Care Team Providers Care Tooth Cutter Contact Wheel Name Role Phone Popeye Bravo MD Primary Care Provider Allergies No known active allergies Medications ondansetron [...] on file Legal Sex Female 6:07 AM PLASTER CASTER Gender Identity Not on file Sexual Orientation Not on file Last Filed Vital Signs Vital Sign Reading Time Taken Comments Blood Pressure 120/74 04/04/2023 10:25 AM PLASTER CASTER Pulse 71 11/21/2018 4:16 PM CDT Temperature 36.8 C (98.3 F) 11/21/2018 4:16 PM CDT Respiratory Rate 18 11/21/2018 4:16 PM CDT Oxygen Saturation 100% 11/21/2018 4:16 PM CDT Inhaled Oxygen Concentration - - Weight 111.9 kg (246 lb 12.8 oz) 2023 10:25 AM PLASTER CASTER Height 172.7 cm (5' 8 ) 04/04/2023 10:2 5 AM PLASTER CASTER Body Mass Index 37.53 04/04/2023 10:25 AM PLASTER CASTER Plan of Treatment Health Maintenance Due Date Last Done Comments HEPATITIS B VACCINES (1 of 3 - 19+ 3-dose series) 2006 CERVICAL CANCER SCREENING 2017 INFLUENZA VACCINE (#1) 2023 01/11/2018 DTAP/TDAP/TD VACCINES (2 - T d or Tdap) 03/04/2030 03/04/2020 HPV VACCINES Aged Out No longer eligi ble based on patient's age to complete this topic Medical Devices Implanted Type Area Sight Mounter Device Identifier Shelf Expiration Date Model / Serial / Lot Seamguard Endogia 60 Prpl [id number] - [id number] Implanted:Qty : 2 on 11/20/2018 by Michael Palomares MD at [facility] Biological N/A: Stomach [employer] 07/29/2021 [id number] / / [id number] Seamguard Endogia 60 Blck [id number] - [id number] Implanted:Qty : 2 on 11/20/2018 by Michael Palomares MD at [facility] Biological N/A: Stomach [employer] 08/29/2021 [id number] / / [id number] Description:implant #2- lot# [id number] exp. 08/29/21 Insurance RX [employer] Commercial RX T[employer]IA PLANS (INTERNAL) [facility] * Guarantor: OLD ACCT-OCC [facility] (OM) Account Type Relation to Patient Date of Phone Billing Address Corporate Other [address] [address] Advance Directives For more information, please contact: [phone] * Full Code (Latest Code Status on File) Date Activated Date Inactivated Comments 11/20/2018 10:38 AM 11/21/2018 9:04 PM * Full Code Date Activated Date Inactivated Comments 11/20/2018 7:52 AM 11/20/2018 10:38 AM * Full Code Date Activated Date Inactivated Comments 11/20/2018 6:55 AM 11/20/2018 7:52 AM Care Teams Tooth Cutter Contact Wheel Relationship Specialty Start Date End Date Popeye Bravo MD [address] [place] [address] PCP - General Family Practice 11/07/18
--- OUTSIDE RECORDS SUMMARY | 2024-05-23 01:45 | XMS_ITS | Clinical Summary ---
Author Organization [facility] Address [address] [place] [address] Care Team Providers Care Clinical Laboratory Aide Name Role Phone Popeye Bravo MD Primary Care Provider [phone] Allergies No known active allergies Medications diclofenac [...] Comments Blood Pressure 106/75 03/11/2020 1:30 AM LINECASTING MACHINE KEYBOARD OPERATOR Pulse 81 03/11/2020 1:30 AM LINECASTING MACHINE KEYBOARD OPERATOR Temperature 36.6 C (97.9 F) 03/10/2020 8:21 PM LINECASTING MACHINE KEYBOARD OPERATOR Respiratory Rate 18 03/11/2020 1:30 AM LINECASTING MACHINE KEYBOARD OPERATOR Oxygen Saturation 95% 03/11/2020 1:30 AM LINECASTING MACHINE KEYBOARD OPERATOR Inhaled Oxygen Concentration - - Weight 97.7 kg (215 lb 6.2 oz) 03/10/2020 8:21 P M LINECASTING MACHINE KEYBOARD OPERATOR Height 172.7 cm (5' 8 ) 03/10/2020 8:21 PM LINECASTING MACHINE KEYBOARD OPERATOR Body Mass Index 32.75 03/10/2020 8:21 PM LINECASTING MACHINE KEYBOARD OPERATOR Plan of Treatment Health Maintenance Due Date [...] patient's age to complete this topic Insurance [facility] [employer] Advance Directives * Full Code (Latest Code Status on File) Date Activated Date Inactivated Comments 04/18/2018 4:12 PM 04/19/2018 4:49 PM Care Teams Clinical Laboratory Aide Relationship Specialty Start Date End Date Popeye Bravo MD [address] [address] PCP - General 05/15/16
--- OUTSIDE RECORDS SUMMARY | 2024-05-23 01:46 | XMS_ITS | Encounter Summary ---
Author Organization [facility] Address [address] [place] [address] Care Team Providers Care Stock Counter Name Role Phone Popeye Bravo MD Primary Care Provider [phone] Encounter Details Date Type Department Care Team (Late st Contact Info) Description 11/14/2017 Therapy Plan [facility] [place]patient [place] [address] Nuvia Wheeler, [place] [address] Social History Tobacco Use Types Packs/Day Years [...] on filedocumented in this encounter Care Teams Stock Counter Relationship Specialty Start Date End Date Popeye Bravo MD [address] [address] PCP - General 05/15/16 documented as of this encounter
--- OUTSIDE RECORDS SUMMARY | 2024-05-23 01:46 | XMS_ITS | Encounter Summary ---
Author Organization [facility] Address [address] [place] [address] Care Team Providers Care Glass Sagger Name Role Phone Popeye Bravo MD Primary Care Provider [phone] Encounter Details Date Type Department Care Team (Late st Contact Info) Description 11/14/2017 Hosp Visit [facility] Outpatient Therapy [address] [place], [place] [address] [place] [address] Social History Tobacco Use Types Packs/Day Years [...] on filedocumented in this encounter Care Teams Glass Sagger Relationship Specialty Start Date End Date Popeye Bravo MD [address] [address] PCP - General 05/15/16 documented as of this encounter
--- OUTSIDE RECORDS SUMMARY | 2024-05-23 01:46 | XMS_ITS | Clinical Summary ---
Author Organization [facility] Address [address] [place] [address] Care Team Providers Care Ammonia Distiller Name Role Phone Popeye Bravo MD Primary Care Provider [phone] Allergies No known active allergies Medications hydrOXYzine (VISTARIL) 25 mg capsule Take 1 capsule (25 mg total) by mouth 3 (three) times a day as needed for itching 30 capsule 11/01/2023 Active Encounters Date Type Department Care Team Description 05/08/2024 9:25 PM ART OBJECTS REPAIRER - 05/08/2024 9:26 PM [facility] Emergency [facility] Emergency Department [address] [place] [address] Discharge Disposition: Left without being [...] on file Legal Sex Female 8:53 AM ART OBJECTS REPAIRER Gender Identity Not on file Sexual Orientation Not on file Obstetrics History Last Filed Vital Signs Vital Sign Reading Time Taken Comments Blood Pressure 126/67 05/08/2024 7:42 PM ART OBJECTS REPAIRER Pulse 86 05/08/2024 7:42 PM ART OBJECTS REPAIRER Temperature 36.7 C (98.1 F) 05/08/2024 7:42 PM ART OBJECTS REPAIRER Respiratory Rate 16 05/08/2024 7:42 PM ART OBJECTS REPAIRER Oxygen Saturation 100% 05/08/2024 7:42 PM ART OBJECTS REPAIRER Inhaled Oxygen Concentration - - Weight 103.4 kg (228 lb) 05/08/2024 7:42 PM ART OBJECTS REPAIRER Height 172.7 cm (5' 8 ) 05/08/2024 7:42 PM ART OBJECTS REPAIRER Body Mass Index 34.67 05/08/2024 7:42 PM ART OBJECTS REPAIRER Plan of Treatment Health Maintenance Due Date [...] Comments ECG 12-LEAD STAT 05/08/2024 7:46 PM ART OBJECTS REPAIRER from Last 3 Months Results * ECG 12 lead (05/08/2024 7:46 PM ART OBJECTS REPAIRER) 05/08/2024 7:46 PM ART OBJECTS REPAIRER Narrative [facility] - 05/09/2024 7:45 AM ART OBJECTS REPAIRER Vent Rate: 84 bpm RR Interval: 714 msec GA Interval: 143 msec QRS Duration: 101 msec QT Interval: 354 msec QTC Interval: 394 msec P-R-T [place]: 57 - 15 - 38 degrees IMPRESSION: SINUS RHYTHM NORMAL ECG Electronically Signed By: Keenan Minor MD B us Adwoa Carrillo MD ECG ORDERABLES Final Result [facility] from Last 3 Months Insurance [facility] Member Subscriber Plan / Payer ( fective 2018-Present) Name:Vikas Echeverria Relation to Subscriber:Self Name:Vikas Echeverria Payer ID:[id number] (NAIC) Type: [employer]IANCE Address: [address] Care Teams Ammonia Distiller Relationship Specialty Start Date End Date Popeye Bravo MD [address] [address] PCP - General 10/19/18
--- OUTSIDE RECORDS SUMMARY | 2024-05-23 01:46 | XMS_ITS | Referral Summary ---
Author Organization [facility] Address [address] [place] [address] Care Team Providers Care Shopper Name Role Phone Popeye Bravo MD Primary Care Provider [phone] Encounters Date Type Department Care Team Description 05/08/2024 9:25 PM PANEL INSTRUMENT REPAIRER - 05/08/2024 9:26 PM PANEL INSTRUMENT REPAIRER Emergency [facility] Emergency Department [address] [place] [address] Discharge Disposition: Left without being [...] on file Legal Sex Female 8:53 AM PANEL INSTRUMENT REPAIRER Gender Identity Not on file Sexual Orientation Not on file Last Filed Vital Signs Vital Sign Reading Time Taken Comments Blood Pressure 126/67 05/08/2024 7:42 PM PANEL INSTRUMENT REPAIRER Pulse 86 05/08/2024 7:42 PM PANEL INSTRUMENT REPAIRER Temperature 36.7 C (98.1 F) 05/08/2024 7:42 PM PANEL INSTRUMENT REPAIRER Respiratory Rate 16 05/08/2024 7:42 PM PANEL INSTRUMENT REPAIRER Oxygen Saturation 100% 05/08/2024 7:42 PM PANEL INSTRUMENT REPAIRER Inhaled Oxygen Concentration - - Weight 103.4 kg (228 lb) 05/08/2024 7:42 PM PANEL INSTRUMENT REPAIRER Height 172.7 cm (5' 8 ) 05/08/2024 7:42 PM PANEL INSTRUMENT REPAIRER Body Mass Index 34.67 05/08/2024 7:42 PM PANEL INSTRUMENT REPAIRER Plan of Treatment Not on file Procedures Procedure Name Priority Date/Time Associated Diagnosis Comments ECG 12-LEAD STAT 05/08/2024 7:46 PM PANEL INSTRUMENT REPAIRER from Last 3 Months Results * ECG 12 lead (05/08/2024 7:46 PM PANEL INSTRUMENT REPAIRER) 05/08/2024 7:46 PM PANEL INSTRUMENT REPAIRER Narrative [facility] - 05/09/2024 7:45 AM PANEL INSTRUMENT REPAIRER Vent Rate: 84 bpm RR Interval: 714 msec [place] Interval: 143 msec QRS Duration: 101 msec QT Interval: 354 msec QTC Interval: 394 msec P-R-T [place]: 57 - 15 - 38 degrees IMPRESSION: SINUS RHYTHM NORMAL ECG Electronically Signed By: Keenan Minor MD [facility] us Adwoa Carrillo MD ECG ORDERABLES Final Result [facility] from Last 3 Months Insurance [facility] Member Subscriber Plan / Payer (Ef fective 2018-Present) Name:Vikas Echeverria Relation to Subscriber:Self Name:Vikas Echeverria Payer ID:[id number] (NAIC) Type: [place] Address: [facility] [id number] [address] Care Teams Shopper Relationship Specialty Start Date End Date Popeye Bravo MD [address] [address] PCP - General 10/19/18
[2024-05-23 01:52] LABS: Influenza A QL RT-PCR Negative (Negative); Influenza B QL RT-PCR Negative (Negative); RSV RNA, RT-PCR Negative (Negative); SARS-CoV-2 RNA PCR Negative (Negative)
--- NOTE | 2024-05-23 01:52 | ED_ITS ---
HPI - Chest Pain General Chief Complaint: Chest Pain Stated Complaint: chest pain for a week Time Seen by Provider: 05/23/24 01:34 Source: patient Mode of arrival: ambulatory Limitations: no limitations History of Present Illness HPI narrative: This is a 39-year-old female that presents to the emergency department with several complaints. Reporting intermittent chest pains over the last week. Also reporting some fatigue and shortness of breath. Reporting that she had chills and diarrhea a couple of days ago. She has not taken anything today for pain. Reports a mild right-sided chest discomfort currently. Denies fever, abdominal pain, vomiting. Related Data Allergies Allergy/AdvReac Type Severity Reaction Status Date / Time No Known Allergies Allergy Unknown Verified 05/22/24 21:00 Review of Systems 2 Review of Systems: CONSTITUTIONAL: Denies fever ENT: Denies rhinorrhea, congestion, sore throat CARDIOVASCULAR: Reports chest pain. Denies palpitations, or edema. RESPIRATORY: Reports cough and dyspnea. GASTROINTESTINAL: Reports diarrhea. All systems reviewed & are unremarkable except as noted in HPI and below PMFSH Surgical History Surgical History (Updated 07/16/22 @ 11:52 by Eloisa Wheeler CMA) H/O gastric sleeve (~2019) H/O: hysterectomy (~2018) Family History Family History Other Asthma Hypertension Sickle cell anemia Social History Social History (Updated 07/16/22 @ 11:52 by Eloisa Wheeler CMA) Smoking status: Never smoker Alcohol intake: current Exam 2 Narrative: GENERAL: Well-appearing, well-nourished, and in no acute distress. HEAD: Normocephalic, atraumatic. EYES: EOMI. ENT: Mucous membranes moist. Oropharynx without tonsillar hypertrophy exudate or other lesions. NECK: Supple. No adenopathy or masses. No JVD CHEST: Clear to auscultation. No respiratory distress. No wheezes rales or rhonchi HEART: Regular rate and rhythm. No murmur heard. Normal peripheral pulses. ABDOMEN: Soft, nontender, nondistended, normal active bowel sounds. EXTREMITIES: Normal range of motion. No edema. SKIN: Warm, dry, no rash. NEURO: No focal deficits. Alert and oriented x3. PSYCH: Normal mood and affect Course Course Emergency Course: Patient updated on her workup and agrees with plan of care Vital Signs Vital signs: Vital Signs Temperature 97.9 F 05/22/24 21:00 Pulse Rate 99 05/22/24 21:00 Respiratory Rate 20 05/22/24 21:00 Blood Pressure 122/71 05/22/24 21:00 Pulse Oximetry 100 05/22/24 21:00 Oxygen Delivery Room Air 05/22/24 21:00 Temperature 97.5 F L 05/23/24 01:03 Pulse Rate 77 05/23/24 01:03 Respiratory Rate 17 05/23/24 01:03 Blood Pressure 112/57 L 05/23/24 01:03 Pulse Oximetry 100 05/23/24 01:03 Oxygen Delivery Room Air 05/22/24 21:00 MDM - Chest Pain MDM Narrative Medical decision making narrative: Patient presents to the emergency department with several complaints. Reporting chest pain, shortness of breath, chills, diarrhea, cough. Patient is afebrile and nontoxic appearing. Her vitals are stable. Cbc and metabolic panel without concerning findings. Influenza, RSV and COVID screens are negative. Chest x- ray without acute cardiopulmonary abnormality. EKG without concerning changes and baseline troponin is negative. Perc criteria negative. Patient updated on her workup and agrees with plan of care. She is to follow up with primary provider. She was given warnings to return to the ER Differential Diagnosis Differential diagnosis: Likely stable angina, atypical chest pain, costochondritis and other (pneumonia) Lab Data Attestation: I reviewed the patient's lab results. 05/23/24 01:11 05/23/24 01:11 Labs: Lab Results 05/23/24 Range/Units 01:11 WBC 5.6 (4.5-10.0) K/mm3 RBC 4.33 (4.2-5.4) M/mm3 Hgb 12.9 (12.0-15.0) g/dL Hct 38.5 (37.0-47.0) % MCV 88.9 (80-100) fl MCH 29.8 (26-34) pg MCHC 33.5 (32-36) g/dl RDW 13.1 (11.5-14.5) % Plt Count 190 (150-375) k/mm3 MPV 10.6 H (7.4-10.4) fl Immature Gran % (Auto) 0.2 (0-0.5) % Neut % (Auto) 54.2 (45.5-73.1) % Lymph % (Auto) 35.2 (18.3-44.2) % [place] % (Auto) 8.4 (2.6-8.5) % Eos % (Auto) 1.6 (0-4.4) % Baso % (Auto) 0.4 (0.2-1.2) % Lymph # (Auto) 1.97 (0.9-3.2) K/mm3 [place] # (Auto) 0.5 (0.1-0.6) K/mm3 Eos # (Auto) 0.1 (0-0.3) K/mm3 Baso # (Auto) 0.0 (0.0-0.1) K/mm3 Abs Immat Gran (auto) 0.01 (0.00-0.031) K/mm3 Absolute Neuts (auto) 3.0 (1.3-6.7) K/mm3 Absolute Nucleated RBC 0.000 (0.0-0.012) K/mm3 Nucleated RBC % 0.0 (0.0-0.2) % Sodium 138 (137-145) mmol/L Potassium 3.7 (3.4-5.0) mmol/L Chloride 104 (98-107) mmol/L Carbon Dioxide 26 (22-30) mmol/L Anion Gap 8 (4-12) mmol/L BUN 10 (7-17) mg/dL Creatinine 0.62 L (0.7-1.0) mg/dL Estim Creat Clear Calc 133 ml/min Estimated GFR > 60 (59 - ) Glucose 87 (65-110) mg/dL Calcium 9.2 (8.4-10.2) mg/dL Magnesium 1.8 (1.6-2.3) mg/dL Total Bilirubin 0.6 (0.2-1.3) mg/dL AST 18 (14-36) U/L ALT 12 (6-35) U/L Alkaline Phosphatase 66 (38-126) U/L Troponin I < 0.012 (0.000-0.034) ng/mL Total Protein 7.0 (6.3-8.2) g/dL Albumin 4.0 (3.5-5.1) g/dL Lipase 238 (23-300) U/L Serum HCG, Qual Negative Influenza A (RT-PCR) Negative (Negative) Influenza B (RT-PCR) Negative (Negative) RSV (RT-PCR) Negative (Negative) SARS-CoV-2 RNA (RT-PCR) Negative (Negative) Imaging Data Radiologist's impression: ITS Impressions Chest X-Ray 05/22/24 23:59 IMPRESSION: 1. No acute cardiopulmonary disease. ECG Data EKG #1: ECG completion date: 05/22/24 EKG Interpretation: normal rate, sinus rhythm, no ST changes and normal QT Critical Care Time Critical Care Time Critical Care Time: No Discharge Plan Discharge Clinical Impression: Acute viral syndrome, Atypical chest pain Patient Disposition: Home, Self-Care Condition: Stable Instructions: Chest Pain (ED), Viral Syndrome (ED) Additional Instructions: Return to the emergency department if you experience fever >101, worsening chest pain, shortness of breath, abdominal pain with nausea and vomiting, weakness, numbness, or any other symptoms that are concerning to you. Tylenol or Ibuprofen as needed for pain Follow up with your primary care doctor Patient Language: Australian Prescriptions: No Action tramadol 50 mg tablet 50 mg PO Q6H PRN (Reason: pain) 3 Days Qty: 12 0RF Follow-up/Referrals: Lawrence,Popeye Brennan MD [Primary Care Provider] - Quality HEART score for chest pain patients History: slightly suspicious ECG: normal Age: < or = to 45 years Risk factors: 1 or 2 risk factors Troponin: < or = to 1x normal limit Heart score: 1
[2024-05-23 02:15] LABS: Troponin I < 0.012 ng/mL (0.000-0.034)
[2024-05-23] MEDS: KETOROLAC 15 MG/ML VIAL (*BKC) IV PUSH (02:37)
[2024-05-23 03:24] VITALS: BP 110/59; PULSE 72; RESP 17; TEMP 36.6; O2SAT 100
== END 2024-05-23 03:25 | disposition home or self-care (01) ==
PROVIDERS: Emergency Medicine; Emergency Provider Physician Assistant; PCP Family Medicine
DX: B34.9 Viral infection, unspecified (principal); R07.89 Other chest pain; Z20.822 Contact with and (suspected) exposure to COVID-19; Z98.84 Bariatric surgery status; Z90.710 Acquired absence of both cervix and uterus
CPT/HCPCS: 36415; 71045; 80053; 83690; 83735; 84484; 84703; 85025; 87637; 93005; 96374; 99284; J1885